=== PATIENT | female | born 1935 | race Caucasian/White ===

== ENCOUNTER 2019-02-03 09:39 | Day surgery (SDC) | payer MEDICARE, BC ==
[2019-01-30 14:53] VITALS: BMI 22.6
[~2019-02-03 09:39] MED LIST: LACTATED RINGERS 1,000 ML IV SCH; LIDOCAINE 1% 20 ML VIAL (10MG/ML) FOR IV START INTRADERMA PRN
[2019-02-03 10:18] VITALS: TEMP 97
[2019-02-03] MEDS ORDERED: LIDOCAINE 1% INJ 10MG/ML (20 ML MDV) ONE (10:51)
[2019-02-03] MEDS ORDERED: PROPOFOL 10 MG/ML 20 ML VIAL IV ONE (10:51)
--- NOTE | 2019-02-03 10:55 | P.GSHP ---
History of Present Illness H&P Date: 02/03/19 Chief Complaint: Colon cancer screening history of colon cancer Patient here today for colonoscopy. Last colonoscopy 3 years ago. Personal history of right-sided colon cancer. Underwent right colectomy in 2014. Some constipation lately. Past Medical History Past Medical History: Cancer Additional Past Medical History / Comment(s): Hx Anemia, Colon CA 2014. Varicose Veins. History of Any Multi-Drug Resistant Organisms: None Reported Past Surgical History: Appendectomy, Bowel Resection, Heart Catheterization, Orthopedic Surgery, Tonsillectomy Additional Past Surgical History / Comment(s): ORIF RT ANKLE, Later Hardware removal, CTR, JO-ANN CATARACT, COLONOSCOPY, RIGHT COLECTOMY 2015 Past Anesthesia/Blood Transfusion Reactions: No Reported Reaction Additional Past Anesthesia/Blood Transfusion Reaction / Comment(s): NO BLOOD Smoking Status: Never smoker - Past Family History Mother Family Medical History: Cancer Additional Family Medical History / Comment(s): BLADDER CA Sister(s) Family Medical History: Cancer Additional Family Medical History / Comment(s): LUNG CA Son(s) Family Medical History: Cancer Additional Family Medical History / Comment(s): COLON Medications and Allergies Home Medications Medication Instructions Recorded Confirmed Type Aspirin [Adult Low Dose Aspirin EC] 81 mg PO DAILY 01/30/19 01/30/19 History Multivitamin [Multivitamins Adult 1 each PO DAILY 01/30/19 01/30/19 History Gummies] Polyethylene Glycol 3350 [Miralax] 17 gm PO DAILY PRN 01/30/19 01/30/19 History Allergies Allergy/AdvReac Type Severity Reaction Status Date / Time amoxicillin trihydrate Allergy Unknown Verified 02/03/19 09:55 [From Augmentin] Penicillins Allergy Unknown Verified 02/03/19 09:55 potassium clavulanate Allergy Unknown Verified 02/03/19 09:55 [From Augmentin] Surgical - Exam Vital Signs Temp Pulse Resp BP Pulse Ox 97.0 F L 82 16 169/78 98 02/03/19 10:15 02/03/19 10:15 02/03/19 10:15 02/03/19 10:15 02/03/19 10:15 Physical exam: General: Well-developed, well-nourished HEENT: Normocephalic, sclerae nonicteric Abdomen: Nontender, nondistended Extremities: No edema Neuro: Alert and oriented Assessment and Plan (1) Colon cancer Narrative/Plan: Will proceed with colonoscopy at this time Current Visit: No Status: Acute Code(s): C18.9 - MALIGNANT NEOPLASM OF COLON, UNSPECIFIED SNOMED Code(s): 221884289
--- NOTE | 2019-02-03 11:12 | P.PCN ---
Date of Procedure: 02/03/19 Procedure(s) Performed: PREOPERATIVE DIAGNOSIS: Colon cancer screening, history of colon cancer POSTOPERATIVE DIAGNOSIS: Diverticulosis PROCEDURE: Colonoscopy ANESTHESIA: MAC SURGEON: Joshua Meeks M.D. SPECIMENS: None ENDOSCOPIC PROCEDURE: The patient was placed on the endoscopy table in the left decubitus position. The Olympus colonoscope was inserted into the anus and passed under direct visualization to the ileocolonic anastomosis in the transverse colon. The anastomosis was widely patent. There were no neoplastic changes. The transverse descending sigmoid and rectum are free of any neoplastic inflammatory or polypoid lesions. The patient had extensive sigmoid diverticulosis with tortuosity. Digital rectal examination was normal. The patient was taken to the recovery room in stable condition per anesthesia guidelines. RECOMMENDATIONS: Increase fiber. Follow-up colonoscopy 5 years.
[2019-02-03 11:34] VITALS: BP 146/88; PULSE 71; RESP 18
== END 2019-02-03 12:12 | disposition home or self-care (01) ==
LOC: ORWHC2ENDO 09:39
PROVIDERS: ATTEND Surgery
DX: Z12.11 Encounter for screening for malignant neoplasm of colon (principal); Z85.038 Personal history of other malignant neoplasm of large intestine; K57.30 Diverticulosis of large intestine without perforation or abscess without bleeding; Z98.42 Cataract extraction status, left eye; Z98.41 Cataract extraction status, right eye; Z79.82 Long term (current) use of aspirin; K59.00 Constipation, unspecified; Z80.52 Family history of malignant neoplasm of bladder; Z80.1 Family history of malignant neoplasm of trachea, bronchus and lung; Z88.1 Allergy status to other antibiotic agents; Z88.0 Allergy status to penicillin; Z90.49 Acquired absence of other specified parts of digestive tract
CPT/HCPCS: G0105; J2001; J2704; 45378

== ENCOUNTER 2024-05-29 20:50 | Inpatient (IN) | payer MEDICARE, BC ==
--- NOTE | 2024-05-29 20:55 | ED ---
General Adult HPI - General Stated complaint: NSTEMI Time Seen by Provider: 05/29/24 20:55 - History of Present Illness Initial comments: Brittney is a pleasant 89-year-old female who was transferred to our facility from [facility]. She presented to the hospital with complaint of 2 days of generalized malaise and experiencing some chest pressure and pain in the left shoulder throughout the day today. Workup at outside hospital revealed a normal EKG with mildly elevated troponin, patient does have a history of CAD and follows with Dr. ANAI Baca requested transfer to our facility for evaluation. Upon arrival to our hospital patient has no complaints aside from being hungry weeks she had not had the opportunity to eat today. - Related Data Home Medications Medication Instructions Recorded Confirmed Aspirin [Adult Low Dose Aspirin EC] 81 mg PO DAILY 01/30/19 01/30/19 Multivitamin [Multivitamins Adult 1 each PO DAILY 01/30/19 01/30/19 Gummies] polyethylene glycoL 3350 [Miralax] 17 gm PO DAILY PRN 01/30/19 01/30/19 Allergies Allergy/AdvReac Type Severity Reaction Status Date / Time amoxicillin trihydrate Allergy Unknown Verified 02/03/19 09:55 [From Augmentin] Penicillins Allergy Unknown Verified 02/03/19 09:55 potassium clavulanate Allergy Unknown Verified 02/03/19 09:55 [From Augmentin] Review of Systems ROS Statement: Those systems with pertinent positive or pertinent negative responses have been documented in the HPI. ROS Other: All systems not noted in ROS Statement are negative. Past Medical History Past Medical History: Cancer Additional Past Medical History / Comment(s): Hx Anemia, Colon CA 2014. Varicose Veins. History of Any Multi-Drug Resistant Organisms: None Reported Past Surgical History: Appendectomy, Bowel Resection, Heart Catheterization, Orthopedic Surgery, Tonsillectomy Additional Past Surgical History / Comment(s): ORIF RT ANKLE, Later Hardware removal, CTR, JO-ANN CATARACT, COLONOSCOPY, RIGHT COLECTOMY 2015 Past Anesthesia/Blood Transfusion Reactions: No Reported Reaction Additional Past Anesthesia/Blood Transfusion Reaction / Comment(s): NO BLOOD Past Psychological History: No Psychological Hx Reported Past Alcohol Use History: Rare Past Drug Use History: None Reported - Past Family History Mother Family Medical History: Cancer Additional Family Medical History / Comment(s): BLADDER CA Sister(s) Family Medical History: Cancer Additional Family Medical History / Comment(s): LUNG CA Son(s) Family Medical History: Cancer Additional Family Medical History / Comment(s): COLON General Exam - General Exam Comments Initial Comments: Physical Exam GENERAL: Patient is well-developed and well-nourished. Patient is nontoxic and well-hydrated and is in no distress. HENT: Normocephalic, Atraumatic. EYES: PERRL, EOMI PULMONARY: Unlabored respirations. CARDIOVASCULAR: RRR Warm and well perfused extremities ABDOMEN: Non-distended SKIN: No rashes or bruising : Deferred NEUROLOGIC: Alert and oriented Normal speech Normal gait MUSCULOSKELETAL: Moving all extremities with no apparent injury PSYCHIATRIC: No SI/HI Course Vital Signs 05/29/24 20:53 Temperature 98.1 F Pulse Rate 69 Respiratory 16 Rate Blood Pressure 98/61 O2 Sat by Pulse 95 Oximetry EKG Findings - EKG Comments: EKG Findings:: EKG was interpreted by me EKG obtained due to elevated troponin EKG obtained at 2117 rate is 68 rhythm is sinus with a right bundle branch block, MD 183 QRS 158 Q[address] elevations or depressions no previous EKGs for comparison. Medical Decision Making - Medical Decision Making Was pt. sent in by a medical professional or institution (, PA, FIELD UNDERWRITER, urgent care, hospital, or prison...) When possible be specific @ -Yes, transferred from [facility] Did you speak to anyone other than the patient for history (EMS, parent, family, police, friend...)? What history was obtained from this source @ -Yes, transferring physician, EMS, patient's daughter at bedside Did you review nursing and triage notes (agree or disagree)? Why? @ -I reviewed and agree with nursing and triage notes Were old charts reviewed (outside hosp., previous admission, EMS record, old EKG, old radiological studies, urgent care reports/EKG's, prison records)? Report findings @ -Old charts were reviewed no EKGs were available Differential Diagnosis (chest pain, altered mental status, abdominal pain women, abdominal pain men, vaginal bleeding, weakness, fever, dyspnea, syncope, he adache, dizziness, GI bleed, back pain, seizure, CVA, palpatations, mental health)? @ -Differential Chest Pain: Stable Angina, Unstable Angina, STEMI, NSTEMI Aortic Dissection, Pneumothorax, Musculoskeletal, Esophageal Spasm GERD, Cholecystitis, Pancreatitis, Zoster, this is not meant to be an all-inclusive list. EKG interpreted by me (3pts min.). @ -As above X-rays interpreted by me (1pt min.). @ -Outside chest x-ray no acute findings CT interpreted by me (1pt min.). @ -None done U/S interpreted by me (1pt. min.). @ -None done What testing was considered but not performed or refused? (CT, X-rays, U/S, labs)? Why? @ -None What meds were considered but not given or refused? Why? @ -None Did you discuss the management of the patient with other professionals (professionals i.e. , PA, FIELD UNDERWRITER, lab, RT, psych nurse, web content & social media manager, environmental lawyer, teacher, information officer, outsole caser)? Give summary @ -Ace with admitting physician Dr. Piper Was smoking cessation discussed for >3mins.? @ -No Was critical care preformed (if so, how long)? @ -No Were there social determinants of health that impacted care today? How? (Homelessness, low income, unemployed, alcoholism, drug addiction, tr ansportation, low edu. Level, literacy, decrease access to med. care, group home, rehab)? @ -No Was there de-escalation of care discussed even if they declined (Discuss DNR or withdrawal of care, Hospice)? DNR status @ -No What co-morbidities impacted this encounter? (DM, HTN, Smoking, COPD, CAD, Cancer, CVA, ARF, Chemo, Hep., AIDS, mental health diagnosis, sleep apnea, morbid obesity)? @ -CAD Was patient admitted / discharged? Hospital course, mention meds given and route, prescriptions, significant lab abnormalities, going to OR and other pertinent info. @ -Admit Patient was seen and examined, history is obtained from transferring physician, patient and her daughter at bedside. Patient reported not feeling well for about 2 days but had been complaining to her daughter of pressure in the chest and pain in the left shoulder. Outside labs revealed an elevated troponin patient was started on heparin upon arrival here her only complaint was hunger. Patient was given food, her repeat EKG shows right bundle no previous for comparison. Patient repeat troponin is remains elevated we will continue heparin and plan for admission with cardiology consultation. Patient was agreeable to this. Undiagnosed new problem with uncertain prognosis? @ -Yes, NSTEMI Drug Therapy requiring intensive monitoring for toxicity (Heparin, Nitro, Insulin, Cardizem)? @ -Yes, heparin Were any procedures done? @ -No Diagnosis/symptom? @ -NSTEMI Acute, or Chronic, or Acute on Chronic? @ -Acute Uncomplicated (without systemic symptoms) or Complicated (systemic symptoms)? @ -Default Side effects of treatment? @ -No Exacerbation, Progression, or Severe Exacerbation? @ -No Poses a threat to life or bodily function? How? (Chest pain, USA, PR, pneumonia, PE, COPD, DKA, ARF, appy, cholecystitis, CVA, Diverticulitis, Homicidal, Suicidal, threat to staff... and all critical care pts) @ -Yes - Lab Data Result diagrams: 05/29/24 21:19 05/29/24 21:19 Lab Results 05/29/24 05/29/24 05/29/24 Range/Units 21:19 21:19 21:19 WBC 8.6 (3.8-10.6) k/uL RBC 3.99 (3.80-5.40) m/uL Hgb 12.4 (11.4-16.0) gm/dL Hct 37.2 (34.0-46.0) % MCV 93.2 (80.0-100.0) fL MCH 30.9 (25.0-35.0) pg MCHC 33.2 (31.0-37.0) g/dL RDW 12.4 (11.5-15.5) % Plt Count 132 L (150-450) k/uL MPV 9.8 Neutrophils % 73 % Lymphocytes % 18 % Monocytes % 4 % Eosinophils % 2 % Basophils % 1 % Neutrophils # 6.3 (1.3-7.7) k/uL Lymphocytes # 1.5 (1.0-4.8) k/uL Monocytes # 0.4 (0-1.0) k/uL Eosinophils # 0.2 (0-0.7) k/uL Basophils # 0.1 (0-0.2) k/uL PT 11.4 (10.0-12.5) sec INR 1.0 (<1.2) APTT 53.9 H (22.0-30.0) sec Sodium 136 L (137-145) mmol/L Potassium 3.3 L (3.5-5.1) mmol/L Chloride 103 (98-107) mmol/L Carbon Dioxide 30 (22-30) mmol/L Anion Gap 3 mmol/L BUN 47 H (7-17) mg/dL Creatinine 0.70 (0.52-1.04) mg/dL Est GFR (CKD-EPI)AfAm 89 (>60 ml/min/1.73 sqM) Est GFR (CKD-EPI)NonAf 78 (>60 ml/min/1.73 sqM) Glucose 112 H (74-99) mg/dL Calcium 8.3 L (8.4-10.2) mg/dL Magnesium 1.9 (1.6-2.3) mg/dL Total Bilirubin 0.4 (0.2-1.3) mg/dL AST 35 (14-36) U/L ALT 19 (4-34) U/L Alkaline Phosphatase 76 (38-126) U/L Troponin I (0.000-0.034) ng/mL Total Protein 5.9 L (6.3-8.2) g/dL Albumin 3.0 L (3.5-5.0) g/dL 05/29/24 Range/Units 21:19 WBC (3.8-10.6) k/uL RBC (3.80-5.40) m/uL Hgb (11.4-16.0) gm/dL Hct (34.0-46.0) % MCV (80.0-100.0) fL MCH (25.0-35.0) pg MCHC (31.0-37.0) g/dL RDW (11.5-15.5) % Plt Count (150-450) k/uL MPV Neutrophils % % Lymphocytes % % Monocytes % % Eosinophils % % Basophils % % Neutrophils # (1.3-7.7) k/uL Lymphocytes # (1.0-4.8) k/uL Monocytes # (0-1.0) k/uL Eosinophils # (0-0.7) k/uL Basophils # (0-0.2) k/uL PT (10.0-12.5) sec INR (<1.2) APTT (22.0-30.0) sec Sodium (137-145) mmol/L Potassium (3.5-5.1) mmol/L Chloride (98-107) mmol/L Carbon Dioxide (22-30) mmol/L Anion Gap mmol/L BUN (7-17) mg/dL Creatinine (0.52-1.04) mg/dL Est GFR (CKD-EPI)AfAm (>60 ml/min/1.73 sqM) Est GFR (CKD-EPI)NonAf (>60 ml/min/1.73 sqM) Glucose (74-99) mg/dL Calcium (8.4-10.2) mg/dL Magnesium (1.6-2.3) mg/dL Total Bilirubin (0.2-1.3) mg/dL AST (14-36) U/L ALT (4-34) U/L Alkaline Phosphatase (38-126) U/L Troponin I 0.036 H* (0.000-0.034) ng/mL Total Protein (6.3-8.2) g/dL Albumin (3.5-5.0) g/dL Disposition Clinical Impression: NSTEMI (non-ST elevated myocardial infarction) Disposition: ADMITTED IP TO THIS HOSP Condition: Stable Is patient prescribed a controlled substance at d/c from ED?: No Referrals: Jefe Ulloa MD [Primary Care Provider] - 1-2 days
[2024-05-29 21:26] LABS: Basophils # (A) 0.1 k/uL (0-0.2); Basophils % (A) 1 %; Eosinophils # (A) 0.2 k/uL (0-0.7); Eosinophils % (A) 2 %; HCT 37.2 % (34.0-46.0); HGB 12.4 gm/dL (11.4-16.0); Lymphocytes # (A) 1.5 k/uL (1.0-4.8); Lymphocytes % (A) 18 %; MCH 30.9 pg (25.0-35.0); MCHC 33.2 g/dL (31.0-37.0); MCV 93.2 fL (80.0-100.0); Mean Platelet Volume 9.8; Monocytes # (A) 0.4 k/uL (0-1.0); Monocytes % (A) 4 %; Neutrophils # (A) 6.3 k/uL (1.3-7.7); Neutrophils % (A) 73 %; Platelet Count 132 k/uL (150-450); RBC 3.99 m/uL (3.80-5.40); RDW 12.4 % (11.5-15.5); WBC 8.6 k/uL (3.8-10.6)
[2024-05-29] MEDS: HEPARIN SOD,PORK IN 0.45% NACL 25,000 UNIT in 0.45% NACL 1 250ML.BAG IV SCH (21:35)
[2024-05-29 21:43] LABS: Partial Thromboplastin Time 53.9 sec (22.0-30.0); Prothrombin Time 11.4 sec (10.0-12.5)
[2024-05-29 21:52] LABS: African American GFR (CKD) 89 (>60 ml/min/1.73 sqM); Non-African American GFR(CKD) 78 (>60 ml/min/1.73 sqM); Total Bilirubin 0.4 mg/dL (0.2-1.3); Total Protein 5.9 g/dL (6.3-8.2)
[2024-05-29 22:12] LABS: ALT 19 U/L (4-34); AST 35 U/L (14-36); Alkaline Phosphatase 76 U/L (38-126); Anion Gap 3 mmol/L; Blood Urea Nitrogen 47 mg/dL (7-17); Calcium 8.3 mg/dL (8.4-10.2); Carbon Dioxide 30 mmol/L (22-30); Chloride 103 mmol/L (98-107); Glucose 112 mg/dL (74-99); Magnesium 1.9 mg/dL (1.6-2.3); Potassium 3.3 mmol/L (3.5-5.1); Sodium 136 mmol/L (137-145)
[2024-05-29] MEDS ORDERED: NITROGLYCERIN SL TABS 0.4 MG TAB SUBLINGUAL PRN (22:36)
[2024-05-29] MEDS: POTASSIUM CHLORIDE ER 20 MEQ TAB.ER PO STA (22:45)
[2024-05-30 03:32] LABS: Basophils % (A) 1 %; Eosinophils # (A) 0.2 k/uL (0-0.7); Eosinophils % (A) 2 %; HCT 38.2 % (34.0-46.0); HGB 12.6 gm/dL (11.4-16.0); Lymphocytes # (A) 1.4 k/uL (1.0-4.8); Lymphocytes % (A) 20 %; MCH 30.9 pg (25.0-35.0); MCHC 33.1 g/dL (31.0-37.0); MCV 93.3 fL (80.0-100.0); Mean Platelet Volume 10.3; Monocytes # (A) 0.3 k/uL (0-1.0); Monocytes % (A) 4 %; Neutrophils # (A) 5.1 k/uL (1.3-7.7); Neutrophils % (A) 72 %; Platelet Count 142 k/uL (150-450); RDW 12.8 % (11.5-15.5); WBC 7.2 k/uL (3.8-10.6)
[2024-05-30 04:10] LABS: Partial Thromboplastin Time 32.7 sec (22.0-30.0); Prothrombin Time 11.1 sec (10.0-12.5)
[2024-05-30] MEDS: HEPARIN SODIUM 1,000 UN/ML (10ML VL) IV PRN (04:46)
[2024-05-30] MEDS ORDERED: ALPRAZolam 0.5 MG TAB PO PRN (07:54)
[2024-05-30] MEDS ORDERED: NITROGLYCERIN SL TABS 0.4 MG TAB SUBLINGUAL PRN (07:54)
[2024-05-30] MEDS ORDERED: ASPIRIN 325 MG TAB PO SCH (09:00)
[2024-05-30 09:14] LABS: Chol/HDL Ratio 4.28 Ratio; LDL Cholesterol,Calculated 117.1 mg/dL (0.0-131.0)
[2024-05-30] MEDS: ASPIRIN 81 MG PO SCH (09:25)
[2024-05-30] MEDS: ASPIRIN 325 MG TAB PO STA (09:25)
[2024-05-30] MEDS: ATORVASTATIN 80 MG TAB PO STA (09:25)
[2024-05-30] MEDS: MIDAZOLAM 2 MG/2 ML VIAL IVP ONE (12:09)
[2024-05-30] MEDS: LIDOCAINE 1% INJ 10MG/ML (20 ML MDV) SQ ONE ×2 (12:11)
[2024-05-30] MEDS: HEPARIN SODIUM,PORCINE 10,000 UNIT in SODIUM CHLORIDE 0.9% 1,000 ML IRRIGATION ONE (12:14)
[2024-05-30] MEDS: HEPARIN SODIUM,PORCINE (1 ML) 2,500 UNIT in SODIUM CHLORIDE 0.9% 250 ML IRRIGATION ONE (12:14)
[2024-05-30] MEDS: SODIUM CHLORIDE 0.9% 1,000 ML IV ONE (12:14)
--- NOTE | 2024-05-30 12:28 | P.CRDCN ---
History of Present Illness Consult date: 05/30/24 Reason for Consult (text): NSTEMI History of present illness: This is an 89-year-old female patient of Dr. ANAI Baca with past medical history of moderate aortic stenosis, hypertension. We have been asked to evaluate the patient for NSTEMI. Patient states that she presented to [facility] with complaints of weakness and a little bit hard to breath. She states she has had some dizziness off and on but no syncopal episodes. Patient does have some concerns of vague type chest discomfort. She denies any previous heart surgery or stent. She normally is ambulatory with a cane. Patient is seen today in the emergency center waiting for a bed on the cardiac stepdown unit. Patient has been started on a heparin drip. Blood pressure 122/65, heart rate 66, pulse ox 96% on room air. Patient has been started on a heparin drip. Discussed with patient option of cardiac catheterization and she is agreeable to move forward with this today. -EKG: Sinus rhythm with right bundle branch block -Chest x-ray: Done at [facility] finding no acute process -Laboratory studies: WBC 7.2, hemoglobin 12.6, platelet count 142. Sodium 136, potassium 3.3 and has been replaced, BUN 47 creatinine 0.7. Troponin 0.036, 0.032, 0.028. Triglycerides 112, cholesterol 182, LDL 117, HDL 42. Previous troponins completed at [facility] were 0.062 and 0.051. -Home cardiac medications: Lasix 20 mg daily, metolazone 2.5 mg twice weekly, Toprol XL 25 mg daily, potassium chloride 10 mEq daily. -Cardiac catheterization in 2013 revealed normal coronary arteries, EF 60%. -Echocardiogram performed 01/24/2024 revealed moderate aortic stenosis with mean gradient of 20 mmHg, moderate aortic regurgitation, mild mitral regurgitation, no significant pulmonary hypertension. Review Of Systems: At the time of my exam: CONSTITUTIONAL: Denies fever or chills. HEENT: Denies blurred vision, vision changes, or eye pain. Denies hemoptysis CARDIOVASCULAR: Denies chest pain. Denies orthopnea. Denies PND. Denies palpitations RESPIRATORY: Denies shortness of breath. GASTROINTESTINAL: Denies abdominal pain. Denies nausea or vomiting. HEMATOLOGIC: Denies bleeding disorders. GENITOURINARY: Denies any blood in urine. SKIN: Denies puritis. Denies rash. Physical examination: Gen: This is a frail-appearing 89-year-old female appears to be in no acute distress VS: reviewed HEENT: Head is atraumatic, normocephalic. Pupils equal, round. Sclerae is anicteric. NECK: Supple. No JVD. LUNGS: Clear to auscultation. No wheezes or rhonchi. No intercostal retractions. HEART: Distant heart sounds. Regular rate and rhythm. Systolic murmur. ABDOMEN: Soft No tenderness. EXTREMITIES: No pedal edema. No calf tenderness. NEUROLOGICAL: Patient is awake, alert and oriented x3. Assessment: NSTEMI Moderate aortic stenosis Hypertension Plan: Resume patient's home cardiac medications Start patient on aspirin 81 mg daily and Lipitor 40 mg at bedtime Continue heparin drip Schedule patient for cardiac catheterization today with Dr. Fairbanks N.p.o. Obtain 2-D echocardiogram and Doppler study to assess cardiac structure and function Further recommendations to follow based upon clinical course Thank you kindly for this consultation. Nurse practitioner note has been reviewed, I agree with documented findings and plan of care. Patient was seen and examined. Past Medical History Past Medical History: Cancer Additional Past Medical History / Comment(s): Hx Anemia, Colon CA 2015. Varicose Veins. History of Any Multi-Drug Resistant Organisms: None Reported Past Surgical History: Appendectomy, Bowel Resection, Heart Catheterization, Orthopedic Surgery, Tonsillectomy Additional Past Surgical History / Comment(s): ORIF RT ANKLE, Later Hardware removal, CTR, JO-ANN CATARACT, COLONOSCOPY, RIGHT COLECTOMY 2015 Past Anesthesia/Blood Transfusion Reactions: No Reported Reaction Additional Past Anesthesia/Blood Transfusion Reaction / Comment(s): NO BLOOD Past Psychological History: No Psychological Hx Reported Past Alcohol Use History: Rare Past Drug Use History: None Reported - Past Family History Mother Family Medical History: Cancer Additional Family Medical History / Comment(s): BLADDER CA Sister(s) Family Medical History: Cancer Additional Family Medical History / Comment(s): LUNG CA Son(s) Family Medical History: Cancer Additional Family Medical History / Comment(s): COLON Medications and Allergies Home Medications Medication Instructions Recorded Confirmed Type Azithromycin [Zithromax Z Pack] See Taper PO DAILY 05/30/24 05/30/24 History Furosemide [Lasix] 20 mg PO DAILY 05/30/24 05/30/24 History Metoprolol Succinate (ER) [Toprol 25 mg PO DAILY 05/30/24 05/30/24 History Xl] Potassium Chloride ER [K-Dur 10] 10 meq PO DAILY 05/30/24 05/30/24 History Tolterodine ER [Detrol LA] 2 mg PO DAILY 05/30/24 05/30/24 History metOLazone 2.5 mg PO DIRECTED 05/30/24 05/30/24 History Allergies Allergy/AdvReac Type Severity Reaction Status Date / Time amoxicillin trihydrate Allergy Unknown Verified 05/30/24 09:36 [From Augmentin] Penicillins Allergy Unknown Verified 05/30/24 09:36 potassium clavulanate Allergy Unknown Verified 05/30/24 09:36 [From Augmentin] Physical Exam Vitals: Vital Signs Temp Pulse Resp BP Pulse Ox 05/30/24 05:58 70 18 93/49 94 L 05/30/24 02:06 68 18 117/66 95 05/29/24 20:53 98.1 F 69 16 98/61 95 Intake and Output 05/29/24 05/30/24 05/30/24 22:59 06:59 14:59 Intake Total 43.206 Balance 43.206 Intake: Intake, IV Titration 43.206 Amount Heparin Sod,Pork in 0.45% 43.206 NaCl 25,000 unit In 0.45 % NaCl 1 250ml.bag @ 12 UNITS/KG/HR 5.987 mls/hr IV .Q24H [facility] Rx#: [id number] Other: Weight 49.895 kg Results 05/30/24 02:54 05/29/24 21:19 Cardiac Enzymes 05/29/24 05/29/24 05/29/24 Range/Units 21:19 21:19 23:17 AST 35 (14-36) U/L Troponin I 0.036 H* 0.032 (0.000-0.034) ng/mL 05/30/24 Range/Units 02:54 AST (14-36) U/L Troponin I 0.028 (0.000-0.034) ng/mL Coagulation 05/29/24 05/30/24 Range/Units 21:19 02:54 PT 11.4 11.1 (10.0-12.5) sec APTT 53.9 H 32.7 H (22.0-30.0) sec CBC 05/29/24 05/30/24 Range/Units 21:19 02:54 WBC 8.6 7.2 (3.8-10.6) k/uL RBC 3.99 4.10 (3.80-5.40) m/uL Hgb 12.4 12.6 (11.4-16.0) gm/dL Hct 37.2 38.2 (34.0-46.0) % Plt Count 132 L 142 L (150-450) k/uL Comprehensive Metabolic Panel 05/29/24 Range/Units 21:19 Sodium 136 L (137-145) mmol/L Potassium 3.3 L (3.5-5.1) mmol/L Chloride 103 (98-107) mmol/L Carbon Dioxide 30 (22-30) mmol/L BUN 47 H (7-17) mg/dL Creatinine 0.70 (0.52-1.04) mg/dL Glucose 112 H (74-99) mg/dL Calcium 8.3 L (8.4-10.2) mg/dL AST 35 (14-36) U/L ALT 19 (4-34) U/L Alkaline Phosphatase 76 (38-126) U/L Total Protein 5.9 L (6.3-8.2) g/dL Albumin 3.0 L (3.5-5.0) g/dL Current Medications Generic Name Dose Route Start Last Admin Trade Name Freq PRN Reason Stop Dose Admin Aspirin 325 mg 05/30/24 09:00 Aspirin 325 Mg Tab PO DAILY [facility] Heparin Sodium (Porcine) 0 unit 05/29/24 21:10 05/30/24 04:46 Heparin Sodium 1,000 Un/Ml (10ml Vl) IV 1,247 unit PER PROTOCOL PRN Administration Low PTT Protocol Heparin Sodium/Sodium Chloride 250 mls @ 5.987 mls/hr 05/29/24 21:15 05/30/24 04:48 25,000 unit/ Sodium Chloride IV 14 units/kg/hr .Q24H [facility] 6.985 mls/hr Titration Protocol 12 UNITS/KG/HR Nitroglycerin 0.4 mg 05/29/24 22:36 Nitroglycerin Sl Tabs 0.4 Mg Tab SUBLINGUAL Q5M PRN Chest Pain Intake and Output 05/29/24 05/30/24 05/30/24 22:59 06:59 14:59 Intake Total 43.206 Balance 43.206 Intake: Intake, IV Titration 43.206 Amount Heparin Sod,Pork in 0.45% 43.206 NaCl 25,000 unit In 0.45 % NaCl 1 250ml.bag @ 12 UNITS/KG/HR 5.987 mls/hr IV .Q24H [facility] Rx#: [id number] Other: Weight 49.895 kg 05/30/24 02:54 05/29/24 21:19
[2024-05-30] MEDS: IOPAMIDOL-370 100ML BTL INJ ONE (12:37)
[2024-05-30] MEDS ORDERED: RX INFO: IV CONTRAST WAS GIVEN 1 EACH MISC MISCELLANE PRN (12:40)
--- NOTE | 2024-05-30 12:42 | P.PCN ---
Date of Procedure: 05/30/24 Operative Findings: CARDIAC CATHETERIZATION PERFORMING PHYSICIAN: Sabino Fairbanks MD, RPVI PROCEDURE PERFORMED: 1. Selective right and left coronary angiogram 2. Left heart catheterization 3. Ultrasound-guided access of the right common femoral artery and selective right common femoral artery angiogram INDICATION: Acute non-ST elevation myocardial infarction COMPLICATION: None APPROACH: Right common femoral artery LEVEL OF SEDATION: Moderate with sedation in length of 26 minutes PROCEDURE DESCRIPTION: After obtaining an informed consent, the patient was brought to cardiac maintenance shop laborer. Local anesthesia was performed using lidocaine subcutaneously. The right common femoral artery was cannulated using Seldinger technique, the guidewire passed easily, following that we advanced a 6 Nepali sheath dilator assembly, the wire and dilator were removed and sheath was flushed. Selective right and left coronary angiogram using a 6-Nepali JR4 and JL catheters. Following that we did left heart catheterization using 6-Nepali pigtail catheter. The procedure was completed there was no complication. SELECTIVE CORONARY ANGIOGRAM: The right coronary artery: Large-caliber vessel and a dominant vessel appears to be angiographically normal Left main: Calcified with no evidence of high-grade stenosis The left circumflex: Large-caliber vessel nondominant vessel appears to be angiographically normal The left anterior descending artery: Also large-caliber vessel appears to be normal with no evidence of high-grade stenosis HEMODYNAMICS: The LVEDP 13 mmHg with only mild gradient across aortic valve CONCLUSION: 1. Normal coronary angiogram 2. Mild gradient across aortic valve 3. [] POSTPROCEDURE MANAGEMENT: []
--- NOTE | 2024-05-30 15:31 | P.HPIM ---
History of Present Illness H&P Date: 05/30/24 Chief Complaint: Chest pressure This is a pleasant 89-year-old patient, follows with Dr. Jefe Ulloa. Medical conditions include urine incontinence, hypertension, aortic stenosis Patient initially presented to [facility] with some shortness of breath. And has had some dizziness. Also been having some discomfort in the shoulders and left side of the chest. She cannot tell if this was related to any exertion or at rest. No prior cardiac history. Relatively active. Was initially on IV heparin. Patient ruled in for non-Q wave WI. Patient does state that she does not sleep well. Oftentimes wakes up at night. Is worried about family members. Patient underwent a cardiac catheterization by Dr. Fairbanks this afternoon. Found to have normal coronaries. Postprocedure a bit tired. Review of systems: GEN.: Tired EYES: None HEENT: None NECK: None RESPIRATORY: As above CARDIOVASCULAR: As above GASTROINTESTINAL: None GENITOURINARY: Urine incontinence MUSCULOSKELETAL: Some joint pains LYMPHATICS: None HEMATOLOGICAL: None PSYCHIATRY: Slight forgetfulness, anxious NEUROLOGICAL: None. Does not sleep well Social history: Never smoked. Alcohol rarely. Lives alone. Physical examination: VITAL SIGNS: 98, 68, 20, 132 x 68, 98% room air GENERAL: BMI 21.5, laying in bed awake. EYES: Pupils equal. Conjunctiva stephany l. HEENT: External appearance of nose and ears normal, oral cavity grossly normal. Some decreased hearing NECK: JVD not raised; masses not palpable. HEART: First and second heart sounds are normal; no edema. LUNGS: Respiratory rate normal; clear to auscultation. ABDOMEN: Soft, nontender, liver spleen not palpable, no masses palpable. PSYCH: Alert and oriented x3; mood and affect anxious l. MUSCULOSKELETAL:No Clubbing/cyanosis;muscles-grossly intact. OA in many joints NEUROLOGICAL: Cranial nerves grossly intact; no facial asymmetry, power and sensation grossly intact. LYMPHATICS: No lymph nodes palpable in the axilla and neck INVESTIGATIONS, reviewed in the clinical context: May 30: White count 7.2 hemoglobin 12.6 platelets 142 sodium 136 potassium 3.3 BUN 47 creatinine 0.7 Troponin I 0.036, 0.032, 0.028 LDL 117 EKG tracing personally reviewed by me-right bundle alexandro block. Some ST segment depression different leads Assessment plan: -Acute non-Q wave WI. Patient has some nonspecific EKG changes. Some limping troponin. Aspirin. IV heparin. Cardiac catheterization showing normal coronaries -Essential hypertension Patient has been on Toprol-XL -Chronic urinary incontinence Detrol LA 2 mg a day -Mild hard of hearing -Primary osteoarthritis Tylenol as needed -Social stressors -Chronic insomnia, patient from social stressors regarding family members Ambien 2.5 mg nightly -Full code Care was discussed with the patient questions answered. Follow-up with cardiology - Past Medical History Past Medical History: Cancer Additional Past Medical History / Comment(s): Hx Anemia, Colon CA 2015. [place] icose Veins. History of Any Multi-Drug Resistant Organisms: None Reported Past Surgical History: Appendectomy, Bowel Resection, Heart Catheterization, Orthopedic Surgery, Tonsillectomy Additional Past Surgical History / Comment(s): ORIF RT ANKLE, Later Hardware removal, CTR, JO-ANN CATARACT, COLONOSCOPY, RIGHT COLECTOMY 2014 Past Anesthesia/Blood Transfusion Reactions: No Reported Reaction Additional Past Anesthesia/Blood Transfusion Reaction / Comment(s): NO BLOOD Past Psychological History: No Psychological Hx Reported Past Alcohol Use History: Rare Past Drug Use History: None Reported - Past Family History Mother Family Medical History: Cancer Additional Family Medical History / Comment(s): BLADDER CA Sister(s) Family Medical History: Cancer Additional Family Medical History / Comment(s): LUNG CA Son(s) Family Medical History: Cancer Additional Family Medical History / Comment(s): COLON Medications and Allergies Home Medications Medication Instructions Recorded Confirmed Type Azithromycin [Zithromax Z Pack] See Taper PO DAILY 05/30/24 05/30/24 History Furosemide [Lasix] 20 mg PO DAILY 05/30/24 05/30/24 History Metoprolol Succinate (ER) [Toprol 25 mg PO DAILY 05/30/24 05/30/24 History Xl] Potassium Chloride ER [K-Dur 10] 10 meq PO DAILY 05/30/24 05/30/24 History Tolterodine ER [Detrol LA] 2 mg PO DAILY 05/30/24 05/30/24 History metOLazone 2.5 mg PO DIRECTED 05/30/24 05/30/24 History Allergies Allergy/AdvReac Type Severity Reaction Status Date / Time amoxicillin trihydrate Allergy Unknown Verified 05/30/24 09:36 [From Augmentin] Penicillins Allergy Unknown Verified 05/30/24 09:36 potassium clavulanate Allergy Unknown Verified 05/30/24 09:36 [From Augmentin] Physical Exam Vitals: Vital Signs Temp Pulse Resp BP Pulse Ox 05/30/24 10:49 66 16 128/71 96 05/30/24 09:28 66 18 122/65 96 05/30/24 09:00 98 F 68 16 120/65 96 05/30/24 05:58 70 18 93/49 94 L 05/30/24 02:06 68 18 117/66 95 05/29/24 20:53 98.1 F 69 16 98/61 95 Intake and Output 05/29/24 05/30/24 05/30/24 22:59 06:59 14:59 Intake Total 43.206 Balance 43.206 Intake: Intake, IV Titration 43.206 Amount Heparin Sod,Pork in 0.45% 43.206 NaCl 25,000 unit In 0.45 % NaCl 1 250ml.bag @ 12 UNITS/KG/HR 5.987 mls/hr IV .Q24H [facility] Rx#: [id number] Other: Weight 49.895 kg Results CBC & Chem 7: 05/30/24 02:54 05/29/24 21:19 Labs: Abnormal Lab Results - Last 24 Hours (Table) 05/29/24 05/29/24 05/29/24 Range/Units 21:19 21:19 21:19 Plt Count 132 L (150-450) k/uL APTT 53.9 H (22.0-30.0) sec Sodium 136 L (137-145) mmol/L Potassium 3.3 L (3.5-5.1) mmol/L BUN 47 H (7-17) mg/dL Glucose 112 H (74-99) mg/dL Calcium 8.3 L (8.4-10.2) mg/dL Troponin I (0.000-0.034) ng/mL Total Protein 5.9 L (6.3-8.2) g/dL Albumin 3.0 L (3.5-5.0) g/dL 05/29/24 05/30/24 05/30/24 Range/Units 21:19 02:54 02:54 Plt Count 142 L (150-450) k/uL APTT 32.7 H (22.0-30.0) sec Sodium (137-145) mmol/L Potassium (3.5-5.1) mmol/L BUN (7-17) mg/dL Glucose (74-99) mg/dL Calcium (8.4-10.2) mg/dL Troponin I 0.036 H* (0.000-0.034) ng/mL Total Protein (6.3-8.2) g/dL Albumin (3.5-5.0) g/dL
--- NOTE | 2024-05-30 16:46 | CA ---
Transthoracic Echo Report Name: Brittney Ferrari Age: 89 Gender: F : 1935 Exam Date: 05/30/2024 14:39 Exam Location: [facility] Ht (in): 60 Wt (lb): 110 Ordering Physician: Moraima Tam Attending/Referring Phys: [id number], Yonatan Utilization Review Rn Marcelina Kay RDCS Procedure CPT: Indications: LVF Cardiac Hx: Technical Quality: Good Contrast 1: Total Dose (mL): Contrast 2: Total Dose (mL): MEASUREMENTS (Male / Female) Normal Values 2D ECHO LV Diastolic Diameter PLAX 4.4 cm 4.2 - 5.9 / 3.9 - 5.3 cm LV Systolic Diameter PLAX 2.9 cm IVS Diastolic Thickness 0.6 cm 0.6 - 1.0 / 0.6 - 0.9 cm LVPW Diastolic Thickness 0.5 cm 0.6 - 1.0 / 0.6 - 0.9 cm LV Relative Wall Thickness 0.3 LVOT Diameter 2.0 cm LV Diastolic Volume MOD BP 71.2 cm??? 67 - 155 / 56 - 104 cm??? LV Systolic Volume MOD BP 24.7 cm??? 22 - 58 / 19 - 49 cm??? LV Ejection Fraction MOD BP 65.3 % >= 55 % LV Cardiac Index MOD BP 2455.1 cm???/min???m??? LV Diastolic Volume MOD 4C 72.0 cm??? LV Systolic Volume MOD 4C 23.9 cm??? LV Ejection Fraction MOD 4C 66.8 % LV Cardiac Index MOD 4C 2541.5 cm???/min???m??? LV Diastolic Length 4C 7.1 cm LV Systolic Length 4C 5.7 cm LV Diastolic Volume MOD 2C 68.0 cm??? LV Systolic Volume MOD 2C 24.8 cm??? LV Ejection Fraction MOD 2C 63.5 % LV Cardiac Index MOD 2C 2282.1 cm???/min???m??? LV Diastolic Length 2C 6.8 cm LV Systolic Length 2C 5.5 cm LA Volume 28.2 cm??? 18 - 58 / 22 - 52 cm??? LA Volume Index 19.3 cm???/m??? 16 - 28 cm???/m??? DOPPLER AV Peak Velocity 271.2 cm/s AV Peak Gradient 29.4 mmHg AV Mean Velocity 199.1 cm/s AV Mean Gradient 17.2 mmHg AV Velocity Time Integral 61.7 cm LVOT Peak Velocity 75.6 cm/s LVOT Peak Gradient 2.3 mmHg LVOT Velocity Time Integral 16.7 cm LVOT Stroke Volume 53.6 cm??? LVOT Stroke Volume Index 37.0 ml/m??? LVOT Cardiac Index 2830.3 cm???/min???m??? AV Area Cont Eq vti 0.9 cm??? AV Area Cont Eq pk 0.9 cm??? MV Peak Velocity 129.6 cm/s MV Peak Gradient 6.7 mmHg MV Mean Velocity 78.2 cm/s MV Mean Gradient 2.7 mmHg MV Velocity Time Integral 27.8 cm MV Area PHT 3.4 cm??? Mitral E Point Velocity 74.5 cm/s Mitral A Point Velocity 104.2 cm/s Mitral E to A Ratio 0.7 MV Deceleration Time 220.7 ms TR Peak Velocity 284.8 cm/s TR Peak Gradient 32.4 mmHg Right Atrial Pressure 5.0 mmHg Pulmonary Artery Systolic Pressu 37.4 mmHg Right Ventricular Systolic Press 37.4 mmHg PV Peak Velocity 87.0 cm/s PV Peak Gradient 3.0 mmHg FINDINGS Left Ventricle Left ventricular ejection fraction is estimated at 60-65 %. Left ventricular cavity size normal. Left ventricular wall thickness normal. No obvious regional wall motion abnormalities. Right Ventricle Mild right ventricular dilatation with normal function. Mild pulmonary hypertension. Right Atrium Mild right atrial dilatation. Left Atrium Normal left atrial size. Mitral Valve Mitral valve thickened. No evidence for mitral valve prolapse. Mild mitral stenosis. Mild to moderate mitral regurgitation Aortic Valve Cannot rule out bicuspid valve. Diffuse thickening of the aortic valve cusps with reduced excursion. Mild to moderate aortic stenosis with a mean gradient of 18mmHg. May be underestimate due to poor doppler alignment due to positioning after cath. Trace aortic regurgitation. Tricuspid Valve Structurally normal tricuspid valve. No tricuspid stenosis. Moderate tricuspid regurgitation. Pulmonic Valve Structurally normal pulmonic valve. No pulmonic stenosis. Trace pulmonic regurgitation. Pericardium No pericardial effusion. Aorta Aortic annulus normal. CONCLUSIONS Normal LV function Mild to moderate aortic stenosis Moderate tricuspid regurgitation Mild pulmonary hypertension Mild to moderate mitral regurgitation Previewed by: Dr. Charles Hathaway MD (Electronically Signed) Final Date: 30 May 2024 16:45
[2024-05-30] MEDS: SODIUM CHLORIDE 0.9% 1,000 ML IV SCH (19:40)
[2024-05-30] MEDS: ATORVASTATIN 40 MG TAB PO SCH (19:58)
[2024-05-30] MEDS: ARTIFICIAL TEARS-HYPROMELLOSE DROPS 15 ML BTL BOTH EYES SCH (20:01)
[2024-05-31] MEDS ORDERED: HEPARIN SODIUM,PORCINE (1 ML) 2,500 UNIT in SODIUM CHLORIDE 0.9% 250 ML IRRIGATION PRN (07:00)
[2024-05-31] MEDS ORDERED: HEPARIN SODIUM,PORCINE 10,000 UNIT in SODIUM CHLORIDE 0.9% 1,000 ML IRRIGATION PRN (07:00)
[2024-05-31] MEDS: OXYBUTYNIN XL 5 MG TAB.ER.24 PO SCH (08:13)
[2024-05-31] MEDS: METOPROLOL SUCCINATE (ER) 25 MG TAB.ER.24H PO SCH (08:13)
--- NOTE | 2024-05-31 12:11 | P.PN ---
Subjective Progress Note Date: 05/31/24 This is an 89-year-old female patient of Dr. ANAI Baca with past medical history of moderate aortic stenosis, hypertension. We have been asked to evaluate the patient for NSTEMI. Patient states that she presented to [facility] with complaints of weakness and a little bit hard to breath. She states she has had some dizziness off and on but no syncopal episodes. Patient does have some concerns of vague type chest discomfort. She denies any previous heart surgery or stent. She normally is ambulatory with a cane. Patient is seen today in the emergency center waiting for a bed on the cardiac stepdown unit. Patient has been started on a heparin drip. Blood pressure 122/65, heart rate 66, pulse ox 96% on room air. Patient has been started on a heparin drip. Discussed with patient option of cardiac catheterization and she is agreeable to move forward with this today. -EKG: Sinus rhythm with right bundle branch block -Chest x-ray: Done at [facility] finding no acute process -Laboratory studies: WBC 7.2, hemoglobin 12.6, platelet count 142. Sodium 136, potassium 3.3 and has been replaced, BUN 47 creatinine 0.7. Troponin 0.036, 0.032, 0.028. Triglycerides 112, cholesterol 182, LDL 117, HDL 42. Previous troponins completed at [facility] were 0.062 and 0.051. -Home cardiac medications: Lasix 20 mg daily, metolazone 2.5 mg twice weekly, Toprol XL 25 mg daily, potassium chloride 10 mEq daily. -Cardiac catheterization in 2013 revealed normal coronary arteries, EF 60%. -Echocardiogram performed 01/24/2024 revealed moderate aortic stenosis with mean gradient of 20 mmHg, moderate aortic regurgitation, mild mitral regurgitation, no significant pulmonary hypertension. Progress note May 31, 2024 Patient is seen and examined at bedside this a.m. Right radial site and right femoral site appears to be intact with no signs of swelling or hematoma. She is hemodynamically stable. Not reporting any chest pain. She does report feeling weak. She has a poor appetite and has a low BMI. She has prior history of colon cancer in 2014 Physical examination: Gen: This is a frail-appearing 89-year-old female appears to be in no acute distress VS: reviewed HEENT: Head is atraumatic, normocephalic. Pupils equal, round. Sclerae is anicteric. NECK: Supple. No JVD. LUNGS: Clear to auscultation. No wheezes or rhonchi. No intercostal retractions. HEART: Distant heart sounds. Regular rate and rhythm. Systolic murmur. ABDOMEN: Soft No tenderness. EXTREMITIES: No pedal edema. No calf tenderness. NEUROLOGICAL: Patient is awake, alert and oriented x3. Assessment: NSTEMI Moderate aortic stenosis Hypertension Generalized weakness Low BMI Poor appetite Failure to thrive Plan: Continue aspirin, Lipitor Fela catheterization did not show any obstructive coronary artery disease. Her echocardiogram showed moderate aortic stenosis which has been stable and can be monitored on an outpatient basis. Regarding her generalized weakness and poor appetite would request more imports from primary team. She does have prior history of colon cancer showed get an outpatient evaluation for any relapses in any cancer etiology for her poor appetite and weight loss. Cardiac mobley patient is clear. Cardiology team will sign off. Please reconsult us in case of any question. Objective - Vital Signs Vital signs: Vital Signs Temp 98.3 F 05/31/24 11:52 Pulse 74 05/31/24 11:52 Resp 16 05/31/24 11:52 BP 104/59 05/31/24 11:52 Pulse Ox 96 05/31/24 11:52 FiO2 Intake & Output 05/30/24 05/31/24 05/31/24 18:59 06:59 18:59 Intake Total 440 300 Balance 440 300 Weight 49.895 kg 43.8 kg Intake: IV 200 Oral 240 300 Other: # Voids 2 - Labs CBC & Chem 7: 05/30/24 02:54 05/29/24 21:19 Labs: Abnormal Lab Results - Last 24 Hours (Table) 05/30/24 Range/Units 11:14 APTT 34.2 H (22.0-30.0) sec
--- NOTE | 2024-05-31 13:08 | P.PN ---
Subjective Progress Note Date: 05/31/24 This is a pleasant 89-year-old patient, follows with Dr. Jefe Ulloa. Medical conditions include urine incontinence, hypertension, aortic stenosis Patient initially presented to [facility] with some shortness of breath. And has had some dizziness. Also been having some discomfort in the shoulders and left side of the chest. She cannot tell if this was related to any exertion or at rest. No prior cardiac history. Relatively active. Was initially on IV heparin. Patient ruled in for non-Q wave [place]. Patient does state that she does not sleep well. Oftentimes wakes up at night. Is worried about family members. Patient underwent a cardiac catheterization by Dr. Fairbanks this afternoon. Found to have normal coronaries. Postprocedure a bit tired. 05/31. Patient seen and examined. Family at the bedside they are concerned that the patient is very lethargic and weak. Want PT and OT evaluation REVIEW OF SYSTEMS: CONSTITUTIONAL: No fever, no malaise,. CARDIOVASCULAR: No chest pain, no palpitations, no syncope. PULMONARY: No shortness of breath, no cough, GASTROINTESTINAL: No diarrhea, no nausea, no vomiting, no abdominal pain. NEUROLOGICAL: No headaches, no weakness, PHYSICAL EXAMINATION: GENERAL: The patient is alert and oriented x3, not in any acute distress. Well developed, well nourished. HEENT: Pupils are round and equally reacting to light. EOMI. No scleral icterus. No conjunctival pallor. Normocephalic, atraumatic. No pharyngeal erythema. No thyromegaly. CARDIOVASCULAR: S1 and S2 present. No murmurs, rubs, or gallops. PULMONARY: Chest is clear to auscultation, no wheezing or crackles. ABDOMEN: Soft, nontender, nondistended, normoactive bowel sounds. No palpable organomegaly. MUSCULOSKELETAL: No joint swelling or deformity. EXTREMITIES: No cyanosis, clubbing, or pedal edema. NEUROLOGICAL: Gross neurological examination did not reveal any focal deficits. SKIN: No rashes. Assessment and plan Acute non-ST elevation myocardial infarction . Patient has some nonspecific EKG changes. Some limping troponin. 2D echo done showed normal LV function, mild to moderate aortic stenosis, moderate tricuspid Cardiac catheterization showing normal coronaries Continue aspirin Lipitor Cardiology following PT and OT consulted -Essential hypertension Patient has been on Toprol-XL -Chronic urinary incontinence Detrol LA 2 mg a day -Mild hard of hearing -Primary osteoarthritis Tylenol as needed -Social stressors -Chronic insomnia, patient from social stressors regarding family members Ambien 2.5 mg nightly Labs and medication were reviewed.. Continue same treatment. Continue with symptomatic treatment. Resume home medication. Monitor labs and vitals. DVT and GI prophylaxis. Further recommendations as per clinical course of the patient Dictation was produced using [employer] dictation software. please excuse any grammatical, word or spelling errors. Objective - Vital Signs Vital signs: Vital Signs Temp 98.1 F 05/31/24 08:00 Pulse 69 05/31/24 08:00 Resp 16 05/31/24 08:00 BP 125/64 05/31/24 08:00 Pulse Ox 97 05/31/24 08:00 FiO2 Intake & Output 05/30/24 05/31/24 05/31/24 18:59 06:59 18:59 Intake Total 440 300 Balance 440 300 Weight 49.895 kg 43.8 kg Intake: IV 200 Oral 240 300 Other: # Voids 2 - Labs CBC & Chem 7: 05/30/24 02:54 05/29/24 21:19 Labs: Abnormal Lab Results - Last 24 Hours (Table) 05/30/24 Range/Units 11:14 APTT 34.2 H (22.0-30.0) sec
[2024-05-31] MEDS ORDERED: ZINC OXIDE PASTE (Z-GUARD) 1 APPLIC TOPICAL PRN (13:36)
[2024-05-31] MEDS: ALPRAZolam 0.25 MG TAB PO PRN (20:15)
[2024-05-31] MEDS: ACETAMINOPHEN TAB 325 MG TAB PO PRN (21:17)
[2024-06-01 08:07] LABS: African American GFR (CKD) >90 (>60 ml/min/1.73 sqM); Anion Gap 2 mmol/L; Blood Urea Nitrogen 23 mg/dL (7-17); Calcium 8.1 mg/dL (8.4-10.2); Carbon Dioxide 28 mmol/L (22-30); Chloride 108 mmol/L (98-107); Glucose 100 mg/dL (74-99); Non-African American GFR(CKD) 80 (>60 ml/min/1.73 sqM); Potassium 4.6 mmol/L (3.5-5.1); Sodium 138 mmol/L (137-145)
[2024-06-01 18:37] LABS: African American GFR (CKD) 73 (>60 ml/min/1.73 sqM); Anion Gap 3 mmol/L; Blood Urea Nitrogen 33 mg/dL (7-17); Calcium 8.2 mg/dL (8.4-10.2); Carbon Dioxide 34 mmol/L (22-30); Chloride 102 mmol/L (98-107); Glucose 114 mg/dL (74-99); Non-African American GFR(CKD) 64 (>60 ml/min/1.73 sqM); Potassium 4.8 mmol/L (3.5-5.1); Sodium 139 mmol/L (137-145)
[2024-06-01] MEDS: MAG HYDROX/AL HYDROX/SIMETH 30 ML CUP PO PRN (23:20)
--- NOTE | 2024-06-02 09:45 | P.PN ---
Subjective Progress Note Date: 06/01/24 This is a pleasant 89-year-old patient, follows with Dr. Jefe Ulloa. Medical conditions include urine incontinence, hypertension, aortic stenosis Patient initially presented to [facility] with some shortness of breath. And has had some dizziness. Also been having some discomfort in the shoulders and left side of the chest. She cannot tell if this was related to any exertion or at rest. No prior cardiac history. Relatively active. Was initially on IV heparin. Patient ruled in for non-Q wave MD. Patient does state that she does not sleep well. Oftentimes wakes up at night. Is worried about family members. Patient underwent a cardiac catheterization by Dr. Fairbanks this afternoon. Found to have normal coronaries. Postprocedure a bit tired. 05/31. Patient seen and examined. Family at the bedside they are concerned that the patient is very lethargic and weak. Want PT and OT evaluation. 06/01. Patient seen and examined. No acute issues overnight. REVIEW OF SYSTEMS: CONSTITUTIONAL: No fever, no malaise,. CARDIOVASCULAR: No chest pain, no palpitations, no syncope. PULMONARY: No shortness of breath, no cough, GASTROINTESTINAL: No diarrhea, no nausea, no vomiting, no abdominal pain. NEUROLOGICAL: No headaches, no weakness, PHYSICAL EXAMINATION: GENERAL: The patient is alert and oriented x3, not in any acute distress. Well developed, well nourished. HEENT: Pupils are round and equally reacting to light. EOMI. No scleral icterus. No conjunctival pallor. Normocephalic, atraumatic. No pharyngeal erythema. No thyromegaly. CARDIOVASCULAR: S1 and S2 present. No murmurs, rubs, or gallops. PULMONARY: Chest is clear to auscultation, no wheezing or crackles. ABDOMEN: Soft, nontender, nondistended, normoactive bowel sounds. No palpable organomegaly. MUSCULOSKELETAL: No joint swelling or deformity. EXTREMITIES: No cyanosis, clubbing, or pedal edema. NEUROLOGICAL: Gross neurological examination did not reveal any focal deficits. SKIN: No rashes. Assessment and plan Acute non-ST elevation myocardial infarction . Patient has some nonspecific EKG changes. Some limping troponin. 2D echo done showed normal LV function, mild to moderate aortic stenosis, moderate tricuspid Cardiac catheterization showing normal coronaries Continue aspirin Lipitor Cardiology following PT and OT consulted -Essential hypertension Patient has been on Toprol-XL -Chronic urinary incontinence Detrol LA 2 mg a day -Mild hard of hearing -Primary osteoarthritis Tylenol as needed -Social stressors -Chronic insomnia, patient from social stressors regarding family members Ambien 2.5 mg nightly Labs and medication were reviewed.. Continue same treatment. Continue with symptomatic treatment. Resume home medication. Monitor labs and vitals. DVT and GI prophylaxis. Further recommendations as per clinical course of the patient Dictation was produced using [employer] dictation software. please excuse any grammatical, word or spelling errors. Objective - Vital Signs Vital signs: Vital Signs Temp 98.0 F 06/02/24 07:36 Pulse 79 06/02/24 07:36 Resp 16 06/02/24 07:36 BP 109/56 06/02/24 07:36 Pulse Ox 97 06/02/24 07:36 FiO2 Intake & Output 06/01/24 06/02/24 06/02/24 18:59 06:59 18:59 Intake Total 358 257 Balance 358 257 Weight 46 kg Intake: IV 20 0.9 NS FLUSH 20 Oral 358 237 Other: # Voids 2 - Labs CBC & Chem 7: 05/30/24 02:54 06/01/24 18:11 Labs: Abnormal Lab Results - Last 24 Hours (Table) 06/01/24 06/01/24 Range/Units 18:11 18:11 D-Dimer 27.71 H (<0.60) mg/L FEU Carbon Dioxide 34 H (22-30) mmol/L BUN 33 H (7-17) mg/dL Glucose 114 H (74-99) mg/dL Calcium 8.2 L (8.4-10.2) mg/dL
[2024-06-02] MEDS: PANTOPRAZOLE 40 MG/10 ML VIAL IVP SCH (10:04)
[2024-06-02 10:15] LABS: Basophils % (A) 0 %; Eosinophils # (A) 0.1 k/uL (0-0.7); Eosinophils % (A) 1 %; HCT 39.9 % (34.0-46.0); HGB 12.6 gm/dL (11.4-16.0); Hypochromasia Slight; Lymphocytes % (A) 6 %; MCH 30.9 pg (25.0-35.0); MCHC 31.6 g/dL (31.0-37.0); MCV 97.9 fL (80.0-100.0); Mean Platelet Volume 9.2; Monocytes # (A) 0.5 k/uL (0-1.0); Monocytes % (A) 3 %; Neutrophils # (A) 14.2 k/uL (1.3-7.7); Neutrophils % (A) 89 %; Platelet Count 170 k/uL (150-450); RBC 4.07 m/uL (3.80-5.40); RDW 12.5 % (11.5-15.5); WBC 15.9 k/uL (3.8-10.6)
[2024-06-02 10:47] LABS: ALT 21 U/L (4-34); AST 34 U/L (14-36); African American GFR (CKD) >90 (>60 ml/min/1.73 sqM); Albumin 2.9 g/dL (3.5-5.0); Alkaline Phosphatase 90 U/L (38-126); Anion Gap 0 mmol/L; Blood Urea Nitrogen 22 mg/dL (7-17); Calcium 8.1 mg/dL (8.4-10.2); Carbon Dioxide 29 mmol/L (22-30); Chloride 108 mmol/L (98-107); Glucose 118 mg/dL (74-99); Non-African American GFR(CKD) 78 (>60 ml/min/1.73 sqM); Potassium 4.8 mmol/L (3.5-5.1); Sodium 137 mmol/L (137-145); Total Bilirubin 0.5 mg/dL (0.2-1.3)
--- NOTE | 2024-06-02 11:35 | CT ---
EXAMINATION TYPE: CT chest angio for PE CT DLP: 665.6 mGycm, Automated exposure control for dose reduction was used. DATE OF EXAM: 06/02/2024 11:19 AM COMPARISON: Chest radiograph 05/29/2024 CLINICAL INDICATION:Female, 89 years old with history of Dyspnea; Dyspnea TECHNIQUE/CONTRAST: CTA scan of the thorax is performed with IV Contrast, patient injected with 100 mL of Isovue 370, pul monary embolism protocol. MIP images are created and reviewed. FINDINGS: Pulmonary Artery: There are filling defects identified within the bilateral main pulmonary arteries e xtending into the segmental and subsegmental pulmonary arteries bilaterally of the mid and lower lung s. The main pulmonary artery measures up to 3.1 cm in diameter. The right main pulmonary measures up to 2.8 cm in diameter. The left main pulmonary artery measures up to 2.5 cm in diameter. Reflux of co ntrast in the IVC. Lungs/Pleura: No pleural effusion or pneumothorax. Patchy consolidation within the right lower lobe. Additional patchy consolidative opacities within the medial aspect of the left lower lobe with additi onal patchy tree-in-bud nodular opacities within the left upper lobe. Biapical pleural-parenchymal sc arring. Airway: Large airways are patent. Heart: The heart is mildly enlarged for size. No pericardial effusion. Moderate coronary arterial miguel angel cifications. There is flattening of the interventricular septum with mild dilatation of the right shane tricle and bilateral atria. Vasculature: Mild atherosclerotic calcifications are present throughout the aorta and its branches. N o thoracic aortic aneurysm. Mediastinum: No gross evidence of adenopathy. Musculoskeletal: Mild degenerative disc disease changes are present throughout the thoracolumbar spin e. No acute osseous abnormality. Soft Tissues: Unremarkable. Lower neck: No significant findings. Upper Abdomen: Please refer to dedicated CT abdomen and pelvis the same day for findings. IMPRESSION: 1. Bilateral pulmonary emboli with findings concerning for right heart strain. 2. Patchy consolidation within the right lower lobe and medial left upper lobe with additional tree-i n-bud nodular opacities within the left upper lobe. Findings concerning for infectious process with d eveloping pulmonary infarct not excluded. Findings relayed via [employer] messaging to ordering physician at 11:32 AM on 06/02/2024. [facility], , 06/02/2024 11:32 AM
--- NOTE | 2024-06-02 11:42 | CT ---
EXAMINATION TYPE: CT abdomen pelvis w con CT DLP: 665.6 mGycm, Automated exposure control for dose reduction was used. DATE OF EXAM: 06/02/2024 11:22 AM COMPARISON: CT abdomen pelvis 01/26/2015 CLINICAL INDICATION:Female, 89 years old with history of Abdominal pain; Abdominal pain TECHNIQUE: Standard CT of the abdomen and pelvis following the administration of 100 cc of Isovue 3 00 IV contrast material. Coronal and sagittal reformats were performed. FINDINGS: LOWER CHEST: Please see dedicated CTA chest for findings ABDOMEN LIVER: Stable subcentimeter hypodensity within the right hepatic dome likely representing a cyst. GALLBLADDER AND BILE DUCTS: Unremarkable appearance of the gallbladder. No extra hepatic biliary duct al dilatation. Similar mild intrahepatic biliary ductal dilatation dating back to 2014. PANCREAS: Unremarkable. SPLEEN: Unremarkable. ADRENAL GLANDS: Unremarkable. KIDNEYS AND URETERS: No evidence of hydronephrosis or renal calculus. The kidneys enhance symmetrical ly. Right renal lower pole exophytic 4.2 cm cyst. Additional subcentimeter cyst within the superior p ole the right kidney. Contrast is demonstrated within both collecting systems on the delayed phase. PELVIS BLADDER: Underdistended, limiting evaluation. REPRODUCTIVE: Dystrophic calcifications within the uterus consistent with fibroid changes. ABDOMEN & PELVIS STOMACH AND BOWEL: Stomach and duodenum are unremarkable. Post surgical changes of the colon with vitor stomosis within the right lower quadrant. No focal bowel wall thickening or surrounding inflammatory changes. Distal colonic diverticulosis without evidence for acute diverticulitis. Moderate amount of stool within the colon. No evidence of bowel obstruction. PERITONEUM: No evidence of pneumoperitoneum or free fluid. VASCULATURE: Moderate atherosclerotic calcifications are present throughout the abdominal aorta and i ts branches. No evidence of aortic aneurysm. There are filling defects identified within the bilatera l femoral veins. MUSCULOSKELETAL: No acute osseous abnormalities. Grade 1 anterolisthesis of L4 on L5 without pars def ects. Mild retrolisthesis of L1 on L2. Multilevel degenerative disc disease most pronounced at L1-L2. LYMPH NODES: No evidence for lymphadenopathy. SOFT TISSUE/ABDOMINAL WALL: Unremarkable IMPRESSION: 1. Deep venous thrombosis involving the bilateral femoral veins. 2. Colonic diverticulosis without evidence for acute diverticulitis. 3. Stable mild intrahepatic biliary duct dilatation dating back to 2014. 4. Calcified fibroid uterus. 5. Moderate colonic stool burden. Findings relayed via [employer] system to ordering provider at 11:32 AM on 06/02/2024. [facility], , 06/02/2024 11:40 AM
[2024-06-02] MEDS: HEPARIN SODIUM 1,000 UN/ML (10ML VL) IV ONE (11:48)
[2024-06-02] MEDS: HEPARIN SOD,PORK IN 0.45% NACL 25,000 UNIT in 0.45% NACL 1 250ML.BAG IV SCH (11:49)
[2024-06-02 11:57] LABS: Basophils % (A) 0 %; Eosinophils # (A) 0.1 k/uL (0-0.7); Eosinophils % (A) 1 %; HCT 40.8 % (34.0-46.0); HGB 13.2 gm/dL (11.4-16.0); Lymphocytes % (A) 7 %; MCH 31.1 pg (25.0-35.0); MCHC 32.4 g/dL (31.0-37.0); Mean Platelet Volume 9.5; Monocytes # (A) 0.5 k/uL (0-1.0); Monocytes % (A) 3 %; Neutrophils # (A) 13.3 k/uL (1.3-7.7); Neutrophils % (A) 89 %; Platelet Count 168 k/uL (150-450); RBC 4.25 m/uL (3.80-5.40); RDW 13.1 % (11.5-15.5)
[2024-06-02 12:19] LABS: INR 0.9 (<1.2); Partial Thromboplastin Time 26.8 sec (22.0-30.0); Prothrombin Time 10.6 sec (10.0-12.5)
--- NOTE | 2024-06-02 13:18 | P.GSCN ---
History of Present Illness Consult date: 06/02/24 Reason for Consult: Bilateral pulmonary embolism Requesting physician: Leonard Campbell History of present illness: This is a pleasant 89-year-old female who was transferred from [facility] on 05/29/2024 with complaints of shortness of breath, generalized weakness and chest pressure. She has a past medical history including anemia, colon cancer with a bowel resection in 2014, moderate aortic stenosis and hype rtension who follows with Dr. ANAI Baca. Patient was transferred to [facility] for NSTEMI and was evaluated by cardiology and underwent cardiac catheterization on 05/30/2024 with findings of a normal coronary angiogram. She continues to complain of generalized weakness with lower extremity weakness, decreased appetite and some shortness of breath with exertion. She had a D-dimer that was positive and therefore CT angiogram was ordered of the chest which showed positive bilateral pulmonary emboli with possible right heart strain. Vascular surgery was consulted for pulmonary embolism. Patient reports no shortness of breath at rest. She is currently on room air with oxygen saturation at 94%. She states that she has been sedentary since last week Sunday which is new for her and she is usually very active in her house as well as in her yard. Denies any previous history of pulmonary embolism or DVT. No recent surgeries or recent travel. Patient has not had a colonoscopy since her diagnosis of colon cancer in 2014. She did have a echocardiogram on 05/31/2024 with findings of mild right ventricular dilation with normal function. Mild pulmonary hypertension. Also had a CT of the abdomen and pelvis that reported bilateral femoral vein DVTs. Awaiting venous duplex. Patient states she has been having some pain in her left foot otherwise no lower extremity pain or swelling. She currently denies any chest pain, shortness of breath, abdominal pain, nausea or vomiting. No lower extremity pain. Review of Systems A 14 point review systems was completed all pertinent positives and negatives as stated in the HPI. Past Medical History Past Medical History: Cancer Additional Past Medical History / Comment(s): Hx Anemia, Colon CA 2015. Varicose Veins. History of Any Multi-Drug Resistant Organisms: None Reported Past Surgical History: Appendectomy, Bowel Resection, Heart Catheterization, Orthopedic Surgery, Tonsillectomy Additional Past Surgical History / Comment(s): ORIF RT ANKLE, Later Hardware removal, CTR, JO-ANN CATARACT, COLONOSCOPY, RIGHT COLECTOMY 2015 Past Anesthesia/Blood Transfusion Reactions: No Reported Reaction Additional Past Anesthesia/Blood Transfusion Reaction / Comm: NO BLOOD Past Psychological History: No Psychological Hx Reported Past Alcohol Use History: Rare Past Drug Use History: None Reported - Past Family History Mother Family Medical History: Cancer Additional Family Medical History / Comment(s): BLADDER CA Sister(s) Family Medical History: Cancer Additional Family Medical History / Comment(s): LUNG CA Son(s) Family Medical History: Cancer Additional Family Medical History / Comment(s): COLON Daughter(s) Family Medical History: Cancer Additional Family Medical History / Comment(s): colon Medications and Allergies Home Medications Medication Instructions Recorded Confirmed Type Azithromycin [Zithromax Z Pack] See Taper PO DAILY 05/30/24 05/30/24 History Furosemide [Lasix] 20 mg PO DAILY 05/30/24 05/30/24 History Metoprolol Succinate (ER) [Toprol 25 mg PO DAILY 05/30/24 05/30/24 History Xl] Potassium Chloride ER [K-Dur 10] 10 meq PO DAILY 05/30/24 05/30/24 History Tolterodine ER [Detrol LA] 2 mg PO DAILY 05/30/24 05/30/24 History metOLazone 2.5 mg PO DIRECTED 05/30/24 05/30/24 History Allergies Allergy/AdvReac Type Severity Reaction Status Date / Time amoxicillin trihydrate Allergy Unknown Verified 05/30/24 09:36 [From Augmentin] Penicillins Allergy Unknown Verified 05/30/24 09:36 potassium clavulanate Allergy Unknown Verified 05/30/24 09:36 [From Augmentin] Surgical - Exam Vital Signs Temp Pulse Resp BP Pulse Ox 98.1 F 69 16 98/61 95 05/29/24 20:53 05/29/24 20:53 05/29/24 20:53 05/29/24 20:53 05/29/24 20:53 General appearance: The patient is alert, oriented, appears in no acute distre ss. HET: Head is normocephalic and atraumatic. Pupils are equal and reactive. Neck: Supple. Heart: Regular. Lungs: Equal expansion, normal respiratory effort. Abdomen: Soft, nontender, nondistended. Extremities: Normal skin color and turgor. Palpable bilateral DP pulses. No lower extremity swelling. Neurological: No focal deficits. Strength and sensation are grossly intact. Results - Labs 06/02/24 11:43 06/02/24 10:01 Abnormal Lab Results - Last 24 Hours (Table) 06/01/24 06/01/24 06/02/24 Range/Units 18:11 18:11 10:01 WBC 15.9 H (3.8-10.6) k/uL Neutrophils # 14.2 H (1.3-7.7) k/uL D-Dimer 27.71 H (<0.60) mg/L FEU Chloride (98-107) mmol/L Carbon Dioxide 34 H (22-30) mmol/L BUN 33 H (7-17) mg/dL Glucose 114 H (74-99) mg/dL Calcium 8.2 L (8.4-10.2) mg/dL Total Protein (6.3-8.2) g/dL Albumin (3.5-5.0) g/dL 06/02/24 06/02/24 Range/Units 10:01 11:43 WBC 15.0 H (3.8-10.6) k/uL Neutrophils # 13.3 H (1.3-7.7) k/uL D-Dimer (<0.60) mg/L FEU Chloride 108 H (98-107) mmol/L Carbon Dioxide (22-30) mmol/L BUN 22 H (7-17) mg/dL Glucose 118 H (74-99) mg/dL Calcium 8.1 L (8.4-10.2) mg/dL Total Protein 6.0 L (6.3-8.2) g/dL Albumin 2.9 L (3.5-5.0) g/dL Diabetes panel 06/01/24 06/02/24 Range/Units 18:11 10:01 Sodium 139 137 (137-145) mmol/L Potassium 4.8 4.8 (3.5-5.1) mmol/L Chloride 102 108 H (98-107) mmol/L Carbon Dioxide 34 H 29 (22-30) mmol/L BUN 33 H 22 H (7-17) mg/dL Creatinine 0.83 0.68 (0.52-1.04) mg/dL Glucose 114 H 118 H (74-99) mg/dL Calcium 8.2 L 8.1 L (8.4-10.2) mg/dL AST 34 (14-36) U/L ALT 21 (4-34) U/L Alkaline Phosphatase 90 (38-126) U/L Total Protein 6.0 L (6.3-8.2) g/dL Albumin 2.9 L (3.5-5.0) g/dL Calcium panel 06/01/24 06/02/24 Range/Units 18:11 10:01 Calcium 8.2 L 8.1 L (8.4-10.2) mg/dL Albumin 2.9 L (3.5-5.0) g/dL Pituitary panel 06/01/24 06/02/24 Range/Units 18:11 10:01 Sodium 139 137 (137-145) mmol/L Potassium 4.8 4.8 (3.5-5.1) mmol/L Chloride 102 108 H (98-107) mmol/L Carbon Dioxide 34 H 29 (22-30) mmol/L BUN 33 H 22 H (7-17) mg/dL Creatinine 0.83 0.68 (0.52-1.04) mg/dL Glucose 114 H 118 H (74-99) mg/dL Calcium 8.2 L 8.1 L (8.4-10.2) mg/dL Adrenal panel 06/01/24 06/02/24 Range/Units 18:11 10:01 Sodium 139 137 (137-145) mmol/L Potassium 4.8 4.8 (3.5-5.1) mmol/L Chloride 102 108 H (98-107) mmol/L Carbon Dioxide 34 H 29 (22-30) mmol/L BUN 33 H 22 H (7-17) mg/dL Creatinine 0.83 0.68 (0.52-1.04) mg/dL Glucose 114 H 118 H (74-99) mg/dL Calcium 8.2 L 8.1 L (8.4-10.2) mg/dL Total Bilirubin 0.5 (0.2-1.3) mg/dL AST 34 (14-36) U/L ALT 21 (4-34) U/L Alkaline Phosphatase 90 (38-126) U/L Total Protein 6.0 L (6.3-8.2) g/dL Albumin 2.9 L (3.5-5.0) g/dL - Imaging Comments: Chest CT angiogram reports bilateral pulmonary emboli with findings concerning for right heart strain. Patchy consolidation within the right lobe and medial left upper lobe with additional tree-in-bud nodular opacities within the left upper lobe. Findings concerning for infectious process with developing pulmonary infarct not excluded. Assessment and Plan Assessment: 1. Bilateral pulmonary emboli, with reported mild right heart strain, likely provoked from sedentary 2. Lower extremity DVTs 3. Generalized weakness 4. History of moderate aortic stenosis 5. History of hypertension 6. History of colon cancer status post bowel resection in 2014 Plan: 1. Continue symptomatic and supportive care 2. Venous duplex ordered, pending 3. Continue with IV heparin drip 4. Overall patient is looking stable, vital signs are stable including blood pressure, heart rate and oxygen saturation. Patient is not requiring any oxygen supplementation. Will hold off on any vascular surgical procedures such as EKOS or thrombectomy at this time. We will continue to follow. Thank you for this consultation. The impression and plan of care has been dictated as directed. I performed a history and examination of this patient, discussed the same with the dictator. I agree with the dictator's note ,documented as a scribe. Any additional findings or plans will be noted.
--- NOTE | 2024-06-02 13:28 | P.PN ---
Subjective Progress Note Date: 06/02/24 This is a pleasant 89-year-old patient, follows with Dr. Jefe Ulloa. Medical conditions include urine incontinence, hypertension, aortic stenosis Patient initially presented to [facility] with some shortness of breath. And has had some dizziness. Also been having some discomfort in the shoulders and left side of the chest. She cannot tell if this was related to any exertion or at rest. No prior cardiac history. Relatively active. Was initially on IV heparin. Patient ruled in for non-Q wave [place]. Patient does state that she does not sleep well. Oftentimes wakes up at night. Is worried about family members. Patient underwent a cardiac catheterization by Dr. Fairbanks this afternoon. Found to have normal coronaries. Postprocedure a bit tired. 05/31. Patient seen and examined. Family at the bedside they are concerned that the patient is very lethargic and weak. Want PT and OT evaluation. 06/01. Patient seen and examined. No acute issues overnight. 06/02. Patient seen and examined. Complaining abdominal pain, most likely pressure, no nausea nausea or vomiting. D-dimer elevated. REVIEW OF SYSTEMS: CONSTITUTIONAL: No fever, no malaise,. CARDIOVASCULAR: No chest pain, no palpitations, no syncope. PULMONARY: No shortness of breath, no cough, GASTROINTESTINAL: As mentioned above NEUROLOGICAL: No headaches, no weakness, PHYSICAL EXAMINATION: GENERAL: The patient is alert and oriented x3, not in any acute distress. Well developed, well nourished. HEENT: Pupils are round and equally reacting to light. EOMI. No scleral icterus. No conjunctival pallor. Normocephalic, atraumatic. No pharyngeal erythema. No thyromegaly. CARDIOVASCULAR: S1 and S2 present. No murmurs, rubs, or gallops. PULMONARY: Chest is clear to auscultation, no wheezing or crackles. ABDOMEN: Soft, nontender, nondistended, normoactive bowel sounds. No palpable organomegaly. MUSCULOSKELETAL: No joint swelling or deformity. EXTREMITIES: No cyanosis, clubbing, or pedal edema. NEUROLOGICAL: Gross neurological examination did not reveal any focal deficits. SKIN: No rashes. Assessment and plan Acute non-ST elevation myocardial infarction . Patient has some nonspecific EKG changes. Some limping troponin. 2D echo done showed normal LV function, mild to moderate aortic stenosis, moderate tricuspid Cardiac catheterization showing normal coronaries Continue aspirin Lipitor Cardiology following D-dimer was elevated, will order CT chest and ultrasound lower extremities PT and OT consulted Abdominal pain; Ordered CMP and CT abdomen with contrast -Essential hypertension Patient has been on Toprol-XL -Chronic urinary incontinence Detrol LA 2 mg a day -Mild hard of hearing -Primary osteoarthritis Tylenol as needed -Social stressors -Chronic insomnia, patient from social stressors regarding family members Ambien 2.5 mg nightly Labs and medication were reviewed.. Continue same treatment. Continue with symptomatic treatment. Resume home medication. Monitor labs and vitals. DVT and GI prophylaxis. Further recommendations as per clinical course of the patient Dictation was produced using [employer] dictation software. please excuse any grammatical, word or spelling errors. Objective - Vital Signs Vital signs: Vital Signs Temp 98.0 F 06/02/24 07:36 Pulse 79 06/02/24 07:36 Resp 16 06/02/24 07:36 BP 109/56 06/02/24 07:36 Pulse Ox 97 06/02/24 07:36 FiO2 Intake & Output 06/01/24 06/02/24 06/02/24 18:59 06:59 18:59 Intake Total 358 257 Balance 358 257 Weight 46 kg Intake: IV 20 0.9 NS FLUSH 20 Oral 358 237 Other: # Voids 2 - Labs CBC & Chem 7: 06/02/24 11:43 06/02/24 10:01 Labs: Abnormal Lab Results - Last 24 Hours (Table) 06/01/24 06/01/24 Range/Units 18:11 18:11 D-Dimer 27.71 H (<0.60) mg/L FEU Carbon Dioxide 34 H (22-30) mmol/L BUN 33 H (7-17) mg/dL Glucose 114 H (74-99) mg/dL Calcium 8.2 L (8.4-10.2) mg/dL
--- NOTE | 2024-06-02 14:15 | US ---
EXAMINATION TYPE: US abdomen complete DATE OF EXAM: 06/02/2024 COMPARISON: CT: Today CLINICAL INDICATION: Female, 89 years old with history of Abdominal pain,; abd pain TECHNIQUE: Grayscale and color Doppler imaging of the abdomen was performed. FINDINGS: EXAM MEASUREMENTS: Liver Length: 12.0 cm Gallbladder Wall: 0.20 cm CBD: 0.62 cm, color Doppler imaging was utilized to isolate the common bile duct for measurement. Spleen: 8.1 cm Right Kidney: 10.5 x 5.6 x 4.8 cm Left Kidney: 9.7 x 5.4 x 3.8 cm Pancreas: wnl Liver: wnl Gallbladder: hypoechoic heterogeneous appearance in fundus of GB Evidence for sonographic Pinzon's sign: No CBD: wnl Spleen: wnl Right Kidney: Benign lower pole cyst measuring 4.4 x 3.8 x 3.4cm. No hydronephrosis. Left Kidney: wnl without hydronephrosis Upper IVC: wnl Abd Aorta: Prominent atherosclerotic plaque and irregularity throughout. Normal caliber. IMPRESSION: 1. Borderline to mildly dilated bile duct up to 6.2 mm, acceptable given patient's age. 2. Heterogeneous appearance to the fundus of the gallbladder which can be seen with adenomyomatosis. No mass was identified on the CT scan performed today. Recommend precautionary three-month follow-up gallbladder ultrasound to reassess. [facility], , 06/02/2024 2:13 PM
--- NOTE | 2024-06-02 14:28 | US ---
EXAMINATION TYPE: US venous doppler duplex LE BI DATE OF EXAM: 06/02/2024 1:26 PM COMPARISON: CT: Today CLINICAL INDICATION: Female, 89 years old with history of swelling, elevated d-dimer; elevated d dime r, Pain TECHNIQUE: The lower extremity deep venous system is examined utilizing real time linear array sonog kris with graded compression, color doppler sonography, and spectral doppler. SIDE PERFORMED: Bilateral FINDINGS: VESSELS IMAGED: Common Femoral Vein Deep Femoral Vein Greater Saphenous Vein * Femoral Vein Popliteal Vein Small Saphenous Vein * Proximal Calf Veins (* superficial vessels) Right Leg: No evidence for DVT. Wall appears thickened in CFV, but is compressible, Color Doppler im aging shows patency of the vessels. Spectral waveforms are within normal limits. Left Leg: Echoes seen in the DFV and popliteal vein with no compression and no flow IMPRESSION: 1. Right: Thick appearing wall CFV may reflect some nonocclusive chronic DVT. No acute DVT identified within the right lower extremity imaged from the groin to the upper calf. 2. Left: Positive for acute DVT deep femoral vein and popliteal vein. [facility], , 06/02/2024 2:26 PM
[2024-06-02] MEDS ORDERED: KETOROLAC 15 MG/ML 1 ML VIAL IVP SCH (18:00)
[2024-06-02] MEDS: KETOROLAC 15 MG/ML 1 ML VIAL IVP PRN (18:03)
[2024-06-02] MEDS: HEPARIN SODIUM 1,000 UN/ML (10ML VL) IV PRN (18:11)
[2024-06-03 06:54] LABS: Basophils % (A) 0 %; Eosinophils # (A) 0.1 k/uL (0-0.7); Eosinophils % (A) 1 %; HCT 35.6 % (34.0-46.0); HGB 11.8 gm/dL (11.4-16.0); Lymphocytes # (A) 1.2 k/uL (1.0-4.8); Lymphocytes % (A) 8 %; MCH 31.4 pg (25.0-35.0); MCHC 33.3 g/dL (31.0-37.0); MCV 94.2 fL (80.0-100.0); Mean Platelet Volume 10.6; Monocytes # (A) 0.4 k/uL (0-1.0); Monocytes % (A) 3 %; Neutrophils # (A) 13.9 k/uL (1.3-7.7); Neutrophils % (A) 88 %; Platelet Count 157 k/uL (150-450); RBC 3.78 m/uL (3.80-5.40); RDW 13.1 % (11.5-15.5); WBC 15.7 k/uL (3.8-10.6)
[2024-06-03 07:09] LABS: ALT 19 U/L (4-34); AST 31 U/L (14-36); African American GFR (CKD) >90 (>60 ml/min/1.73 sqM); Albumin 2.6 g/dL (3.5-5.0); Alkaline Phosphatase 87 U/L (38-126); Anion Gap 1 mmol/L; Blood Urea Nitrogen 20 mg/dL (7-17); Calcium 7.8 mg/dL (8.4-10.2); Carbon Dioxide 27 mmol/L (22-30); Chloride 106 mmol/L (98-107); Glucose 100 mg/dL (74-99); Non-African American GFR(CKD) 82 (>60 ml/min/1.73 sqM); Potassium 4.8 mmol/L (3.5-5.1); Sodium 134 mmol/L (137-145); Total Bilirubin 0.6 mg/dL (0.2-1.3); Total Protein 5.2 g/dL (6.3-8.2)
--- NOTE | 2024-06-03 08:46 | P.PN ---
Subjective Progress Note Date: 06/03/24 Principal diagnosis: Pulmonary embolism, DVT Patient is seen and examined today as a follow-up for bilateral pulmonary embolism. 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 She is sitting up eating breakfast. She denies any shortness of breath or chest pain. Denies any lower extremity pain. She is not requiring any oxygen supplementation. She has been up and ambulating to the bathroom. She remains on a heparin drip. States that she would like to go home today. Objective - Vital Signs Vital signs: Vital Signs Temp 97.8 F 06/03/24 07:50 Pulse 85 06/03/24 07:50 Resp 20 06/03/24 07:50 BP 107/57 06/03/24 08:24 Pulse Ox 94 L 06/03/24 07:50 FiO2 Intake & Output 06/02/24 06/03/24 06/03/24 18:59 06:59 18:59 Intake Total 393.144 Balance 393.144 Weight 49.5 kg Intake: Intake, IV Titration 35.144 Amount Heparin Sod,Pork in 0.45% 35.144 NaCl 25,000 unit In 0.45 % NaCl 1 250ml.bag @ 12 UNITS/KG/HR 5.52 mls/hr IV .[facility] Rx#: [id number] Oral 358 Other: Voiding Method Toilet Toilet # Voids 1 1 # Bowel Movements 1 - Exam General appearance: The patient is alert, oriented, appears in no acute distress. HET: Head is normocephalic and atraumatic. Pupils are equal and reactive. Neck: Supple. Heart: Regular. Lungs: Equal expansion, normal respiratory effort. Abdomen: Soft, nontender, nondistended. Extremities: Normal skin color and turgor. Bilateral palpable DP pulses. No lower extremity edema. Neurological: No focal deficits. Strength and sensation are grossly intact. - Labs CBC & Chem 7: 06/03/24 06:00 06/03/24 06:00 Labs: Abnormal Lab Results - Last 24 Hours (Table) 06/02/24 06/02/24 06/02/24 Range/Units 10:01 10:01 11:43 WBC 15.9 H 15.0 H (3.8-10.6) k/uL RBC (3.80-5.40) m/uL Neutrophils # 14.2 H 13.3 H (1.3-7.7) k/uL APTT (22.0-30.0) sec Sodium (137-145) mmol/L Chloride 108 H (98-107) mmol/L BUN 22 H (7-17) mg/dL Glucose 118 H (74-99) mg/dL Calcium 8.1 L (8.4-10.2) mg/dL Total Protein 6.0 L (6.3-8.2) g/dL Albumin 2.9 L (3.5-5.0) g/dL 06/02/24 06/03/24 06/03/24 Range/Units 17:38 00:28 06:00 WBC 15.7 H (3.8-10.6) k/uL RBC 3.78 L (3.80-5.40) m/uL Neutrophils # 13.9 H (1.3-7.7) k/uL APTT 37.3 H 47.7 H (22.0-30.0) sec Sodium (137-145) mmol/L Chloride (98-107) mmol/L BUN (7-17) mg/dL Glucose (74-99) mg/dL Calcium (8.4-10.2) mg/dL Total Protein (6.3-8.2) g/dL Albumin (3.5-5.0) g/dL 06/03/24 Range/Units 06:00 WBC (3.8-10.6) k/uL RBC (3.80-5.40) m/uL Neutrophils # (1.3-7.7) k/uL APTT (22.0-30.0) sec Sodium 134 L (137-145) mmol/L Chloride (98-107) mmol/L BUN 20 H (7-17) mg/dL Glucose 100 H (74-99) mg/dL Calcium 7.8 L (8.4-10.2) mg/dL Total Protein 5.2 L (6.3-8.2) g/dL Albumin 2.6 L (3.5-5.0) g/dL Assessment and Plan Assessment: 1. Bilateral pulmonary emboli, with reported mild right heart strain, likely provoked from being sedentary 2. Lower extremity DVTs 3. Generalized weakness 4. History of moderate aortic stenosis 5. History of hypertension 6. History of colon cancer status post bowel resection in 2014 Plan: 1. Continue symptomatic and supportive care 2. Venous duplex ordered and reviewed 3. Discontinue IV heparin drip and start Eliquis 10 mg twice daily 4. Overall patient is looking stable, vital signs are stable including blood pressure, heart rate and oxygen saturation. Patient is not requiring any oxygen supplementation. Will hold off on any vascular surgical procedures such as EKOS or thrombectomy at this time. Recommend outpatient colonoscopy. Follow-up with Dr. Baca for repeat echocardiogram Thank you for this consultation. Patient is cleared from vascular surgery for discharge. The impression and plan of care has been dictated as directed. I performed a history and examination of this patient, discussed the same with the dictator. I agree with the dictator's note ,documented as a scribe. Any additional findings or plans will be noted.
[2024-06-03] MEDS: Apixaban Initiation Dose--VTE 5 MG TAB PO SCH (10:26)
[2024-06-03 10:32] VITALS: BMI 21.3
--- NOTE | 2024-06-03 13:24 | P.CNPUL ---
History of Present Illness Consult date: 06/03/24 Requesting physician: Ramon Piper Reason for consult: pulmonary embolism Chief complaint: Weakness History of present illness: This is an 89-year-old female with history of moderate aortic stenosis, hypertension, patient was admitted on 05/29/2024, her chief complaint was mostly weakness, and extreme fatigue. Patient has some vague chest discomfort, patient was also noted to have non-ST elevation myocardial infarction on admission, seen by cardiology on consultation, underwent selective right and left coronary angiogram, patient was found to have normal coronary angiogram. And mild gr adient across the aortic valve. On 06/02/2024, patient underwent CT angiogram of the chest,And she was found to have bilateral pulmonary emboli, patchy consolidation within the right lower lobe and medial left upper lobe with tree-in-bud nodular opacities involving the left upper lobe. Raised the possibility of infectious process. Patient had no symptoms to suggest pneumonia on her initial presentation no cough no fever no chills no hemoptysis no chest pain, she had mostly symptoms of weakness as her initial chief complaint. Venous Doppler of the legs showed evidence ofLeft lower extremity DVT. Patient was seen by cardiology on consultation she was also seen by vascular surgery on consultation, the recommendation was to continue present medical treatment, patient was on heparin and she was transitioned to Eliquis. No plans to undergo EKOS thrombolysis or mechanical thrombectomy since the patient did not have significant right-sided heart strain. Patient had no previous history of thromboembolic disease but she did have however history of colon cancer diagnosed and treated in 2014. She had bowel resection, and she had multiple orthopedic surgeries, years ago. Patient has a relatively sedentary lifestyle. No family history of thromboembolic disease Review of Systems CONSTITUTIONAL: Denies fever or chills. HEENT: Denies blurred vision, vision changes, or eye pain. Denies hemoptysis CARDIOVASCULAR: Denies chest pain. Denies orthopnea. Denies PND. Denies palpitations RESPIRATORY: As noted in HPI GASTROINTESTINAL: Patient has chronic vague abdominal pain HEMATOLOGIC: Denies bleeding disorders. GENITOURINARY: Denies any blood in urine. SKIN: Denies puritis. Denies rash. Past Medical History Past Medical History: Cancer Additional Past Medical History / Comment(s): Hx Anemia, Colon CA 2015. Varicose Veins. History of Any Multi-Drug Resistant Organisms: None Reported Past Surgical History: Appendectomy, Bowel Resection, Heart Catheterization, Orthopedic Surgery, Tonsillectomy Additional Past Surgical History / Comment(s): ORIF RT ANKLE, Later Hardware removal, CTR, JO-ANN CATARACT, COLONOSCOPY, RIGHT COLECTOMY 2015 Past Anesthesia/Blood Transfusion Reactions: No Reported Reaction Additional Past Anesthesia/Blood Transfusion Reaction / Comment(s): NO BLOOD Past Psychological History: No Psychological Hx Reported Past Alcohol Use History: Rare Past Drug Use History: None Reported - Past Family History Mother Family Medical History: Cancer Additional Family Medical History / Comment(s): BLADDER CA Sister(s) Family Medical History: Cancer Additional Family Medical History / Comment(s): LUNG CA Son(s) Family Medical History: Cancer Additional Family Medical History / Comment(s): COLON Daughter(s) Family Medical History: Cancer Additional Family Medical History / Comment(s): colon Medications and Allergies Home Medications Medication Instructions Recorded Confirmed Type Azithromycin [Zithromax Z Pack] See Taper PO DAILY 05/30/24 05/30/24 History Furosemide [Lasix] 20 mg PO DAILY 05/30/24 05/30/24 History Metoprolol Succinate (ER) [Toprol 25 mg PO DAILY 05/30/24 05/30/24 History Xl] Potassium Chloride ER [K-Dur 10] 10 meq PO DAILY 05/30/24 05/30/24 History Tolterodine ER [Detrol LA] 2 mg PO DAILY 05/30/24 05/30/24 History metOLazone 2.5 mg PO DIRECTED 05/30/24 05/30/24 History Apixaban [Eliquis Starter Pack 5 - 10 mg PO DIRECTED 30 Days 06/03/24 Rx (for VTE)] #1 each Allergies Allergy/AdvReac Type Severity Reaction Status Date / Time amoxicillin trihydrate Allergy Unknown Verified 05/30/24 09:36 [From Augmentin] Penicillins Allergy Unknown Verified 05/30/24 09:36 potassium clavulanate Allergy Unknown Verified 05/30/24 09:36 [From Augmentin] Physical Exam Vitals: Vital Signs Temp Pulse Resp BP Pulse Ox 06/03/24 11:49 75 16 127/58 97 06/03/24 09:27 94 L 06/03/24 08:24 107/57 06/03/24 07:50 97.8 F 85 20 94/50 94 L 06/03/24 03:15 77 20 120/64 93 L 06/02/24 23:25 74 20 113/67 92 L 06/02/24 20:45 97.5 F L 71 20 108/61 93 L 06/02/24 15:17 99.6 F 78 20 123/68 94 L 06/02/24 13:28 70 Intake and Output 06/02/24 06/03/24 06/03/24 22:59 06:59 14:59 Intake Total 153.144 240 Balance 153.144 240 Intake: Intake, IV Titration 35.144 Amount Heparin Sod,Pork in 0.45% 35.144 NaCl 25,000 unit In 0.45 % NaCl 1 250ml.bag @ 12 UNITS/KG/HR 5.52 mls/hr IV .Q24H [facility] Rx#: [id number] Oral 118 240 Other: Voiding Method Toilet Toilet Toilet # Voids 1 1 # Bowel Movements 1 Weight 49.5 kg 49.5 kg Gen: revealed 89-year-old female pleasant, in no distress, Head: Atraumatic, normocephalic HEENT: PERRLA, EOMI, nonicteric, moist mucous membranes. NECK: Supple. No JVD. No stridor no neck masses LUNGS: Clear to auscultation. No wheezes or rhonchi. HEART: Distant heart sounds. Regular rate and rhythm. Systolic murmur. At the right parasternal area. ABDOMEN: Soft slightly tender no rebound no guarding, positive bowel sounds. EXTREMITIES: No clubbing edema or cyanosis NEUROLOGICAL: Alert oriented x 3 no gross focal deficit Psychiatric: Normal mood affect and normal mental status examination. Results - Laboratory Findings CBC and BMP: 06/03/24 06:00 06/03/24 06:00 PT/INR, D-dimer PT 11.0 sec (10.0-12.5) 06/03/24 06:00 INR 1.0 (<1.2) 06/03/24 06:00 D-Dimer 27.71 mg/L FEU (<0.60) H 06/01/24 18:11 Abnormal lab findings: Abnormal Labs 05/29/24 05/29/24 05/29/24 21:19 21:19 21:19 WBC RBC Plt Count 132 L Neutrophils # APTT 53.9 H D-Dimer Sodium 136 L Potassium 3.3 L Chloride Carbon Dioxide BUN 47 H Glucose 112 H Calcium 8.3 L Troponin I Total Protein 5.9 L Albumin 3.0 L 05/29/24 05/30/24 05/30/24 21:19 02:54 02:54 WBC RBC Plt Count 142 L Neutrophils # APTT 32.7 H D-Dimer Sodium Potassium Chloride Carbon Dioxide BUN Glucose Calcium Troponin I 0.036 H* Total Protein Albumin 05/30/24 06/01/24 06/01/24 11:14 07:19 18:11 WBC RBC Plt Count Neutrophils # APTT 34.2 H D-Dimer 27.71 H Sodium Potassium Chloride 108 H Carbon Dioxide BUN 23 H Glucose 100 H Calcium 8.1 L Troponin I Total Protein Albumin 06/01/24 06/02/24 06/02/24 18:11 10:01 10:01 WBC 15.9 H RBC Plt Count Neutrophils # 14.2 H APTT D-Dimer Sodium Potassium Chloride 108 H Carbon Dioxide 34 H BUN 33 H 22 H Glucose 114 H 118 H Calcium 8.2 L 8.1 L Troponin I Total Protein 6.0 L Albumin 2.9 L 06/02/24 06/02/24 06/03/24 11:43 17:38 00:28 WBC 15.0 H RBC Plt Count Neutrophils # 13.3 H APTT 37.3 H 47.7 H D-Dimer Sodium Potassium Chloride Carbon Dioxide BUN Glucose Calcium Troponin I Total Protein Albumin 06/03/24 06/03/24 06:00 06:00 WBC 15.7 H RBC 3.78 L Plt Count Neutrophils # 13.9 H APTT D-Dimer Sodium 134 L Potassium Chloride Carbon Dioxide BUN 20 H Glucose 100 H Calcium 7.8 L Troponin I Total Protein 5.2 L Albumin 2.6 L - Diagnostic Findings CT scan - chest: image reviewed (As noted in HPI) Assessment and Plan Assessment: Impression: Acute DVT and acute pulmonary embolism Non-ST elevation myocardial infarction Moderate severe aortic stenosis Benign essential hypertension History of colon cancer, bowel resection in 2015 Clinically, doubt pneumonia, CT scan findings are nonspecific Recommendation: Continue present supportive care measures Continue Eliquis Consider further GI workup and possibly colonoscopy, rule out recurrent colon cancer Will continue to follow. Time with Patient: Greater than 30
--- NOTE | 2024-06-03 14:07 | P.PN ---
Subjective Progress Note Date: 06/03/24 This is a pleasant 89-year-old patient, follows with Dr. Jefe Ulloa. Medical conditions include urine incontinence, hypertension, aortic stenosis Patient initially presented to [facility] with some shortness of breath. And has had some dizziness. Also been having some discomfort in the shoulders and left side of the chest. She cannot tell if this was related to any exertion or at rest. No prior cardiac history. Relatively active. Was initially on IV heparin. Patient ruled in for non-Q wave IA. Patient does state that she does not sleep well. Oftentimes wakes up at night. Is worried about family members. Patient underwent a cardiac catheterization by Dr. Fairbanks this afternoon. Found to have normal coronaries. Postprocedure a bit tired. 05/31. Patient seen and examined. Family at the bedside they are concerned that the patient is very lethargic and weak. Want PT and OT evaluation. 06/01. Patient seen and examined. No acute issues overnight. 06/02. Patient seen and examined. Complaining abdominal pain, most likely pressure, no nausea nausea or vomiting. D-dimer elevated. 06/03. Patient seen and examined. CT chest PE protocol done showed bilateral pulmonary emboli with right heart strain, patchy right lower lobe consolidations. Duplex ultrasound of lower extremities done showed acute DVT of left femoral vein and popliteal vein REVIEW OF SYSTEMS: CONSTITUTIONAL: No fever, no malaise,. CARDIOVASCULAR: No chest pain, no palpitations, no syncope. PULMONARY: No shortness of breath, no cough, GASTROINTESTINAL: As mentioned above NEUROLOGICAL: No headaches, no weakness, PHYSICAL EXAMINATION: GENERAL: The patient is alert and oriented x3, not in any acute distress. Well developed, well nourished. HEENT: Pupils are round and equally reacting to light. EOMI. No scleral icterus. No conjunctival pallor. Normocephalic, atraumatic. No pharyngeal erythema. No thyromegaly. CARDIOVASCULAR: S1 and S2 present. No murmurs, rubs, or gallops. PULMONARY: Chest is clear to auscultation, no wheezing or crackles. ABDOMEN: Soft, nontender, nondistended, normoactive bowel sounds. No palpable organomegaly. MUSCULOSKELETAL: No joint swelling or deformity. EXTREMITIES: No cyanosis, clubbing, or pedal edema. NEUROLOGICAL: Gross neurological examination did not reveal any focal deficits. SKIN: No rashes. Assessment and plan Acute non-ST elevation myocardial infarction Bilateral PE Acute DVT of left lower extremity involving the femoral and popliteal . Patient has some nonspecific EKG changes. Some limping troponin. 2D echo done showed normal LV function, mild to moderate aortic stenosis, modera te tricuspid Cardiac catheterization showing normal coronaries Continue aspirin Lipitor CT chest PE protocol done showed bilateral pulmonary emboli with right heart strain, patchy right lower lobe consolidations. Duplex ultrasound of lower extremities done showed acute DVT of left femoral vein and popliteal vein Vascular surgery evaluated, recommended no acute surgical intervention, recommended anticoagulation Abdominal pain; Improved. Ultrasound abdomen done showed heterogenous appearance to the fundus of the gallbladder could be seen in adenomyomatosis, recommend follow-up ultrasound in 3 -Essential hypertension Patient has been on Toprol-XL -Chronic urinary incontinence Detrol LA 2 mg a day -Mild hard of hearing -Primary osteoarthritis Tylenol as needed -Social stressors -Chronic insomnia, patient from social stressors regarding family members Ambien 2.5 mg nightly Labs and medication were reviewed.. Continue same treatment. Continue with symptomatic treatment. Resume home medication. Monitor labs and vitals. DVT and GI prophylaxis. Further recommendations as per clinical course of the patient Dictation was produced using [employer] dictation software. please excuse any grammatical, word or spelling errors. Objective - Vital Signs Vital signs: Vital Signs Temp 97.8 F 06/03/24 07:50 Pulse 85 06/03/24 07:50 Resp 20 06/03/24 07:50 BP 107/57 06/03/24 08:24 Pulse Ox 94 L 06/03/24 09:27 FiO2 Intake & Output 06/02/24 06/03/24 06/03/24 18:59 06:59 18:59 Intake Total 393.144 240 Balance 393.144 240 Weight 49.5 kg Intake: Intake, IV Titration 35.144 Amount Heparin Sod,Pork in 0.45% 35.144 NaCl 25,000 unit In 0.45 % NaCl 1 250ml.bag @ 12 UNITS/KG/HR 5.52 mls/hr IV .Q24H [facility] Rx#: [id number] Oral 358 240 Other: Voiding Method Toilet Toilet # Voids 1 1 # Bowel Movements 1 - Labs CBC & Chem 7: 06/03/24 06:00 06/03/24 06:00 Labs: Abnormal Lab Results - Last 24 Hours (Table) 06/02/24 06/02/24 06/02/24 Range/Units 10:01 10:01 11:43 WBC 15.9 H 15.0 H (3.8-10.6) k/uL RBC (3.80-5.40) m/uL Neutrophils # 14.2 H 13.3 H (1.3-7.7) k/uL APTT (22.0-30.0) sec Sodium (137-145) mmol/L Chloride 108 H (98-107) mmol/L BUN 22 H (7-17) mg/dL Glucose 118 H (74-99) mg/dL Calcium 8.1 L (8.4-10.2) mg/dL Total Protein 6.0 L (6.3-8.2) g/dL Albumin 2.9 L (3.5-5.0) g/dL 06/02/24 06/03/24 06/03/24 Range/Units 17:38 00:28 06:00 WBC 15.7 H (3.8-10.6) k/uL RBC 3.78 L (3.80-5.40) m/uL Neutrophils # 13.9 H (1.3-7.7) k/uL APTT 37.3 H 47.7 H (22.0-30.0) sec Sodium (137-145) mmol/L Chloride (98-107) mmol/L BUN (7-17) mg/dL Glucose (74-99) mg/dL Calcium (8.4-10.2) mg/dL Total Protein (6.3-8.2) g/dL Albumin (3.5-5.0) g/dL 06/03/24 Range/Units 06:00 WBC (3.8-10.6) k/uL RBC (3.80-5.40) m/uL Neutrophils # (1.3-7.7) k/uL APTT (22.0-30.0) sec Sodium 134 L (137-145) mmol/L Chloride (98-107) mmol/L BUN 20 H (7-17) mg/dL Glucose 100 H (74-99) mg/dL Calcium 7.8 L (8.4-10.2) mg/dL Total Protein 5.2 L (6.3-8.2) g/dL Albumin 2.6 L (3.5-5.0) g/dL
--- NOTE | 2024-06-04 11:04 | P.PN ---
Subjective Progress Note Date: 06/04/24 Principal diagnosis: Acute pulmonary embolism and acute DVT This is an 89-year-old female with history of moderate aortic stenosis, hypertension, patient was admitted on 05/29/2024, her chief complaint was mostly weakness, and extreme fatigue. Patient has some vague chest discomfort, patient was also noted to have non-ST elevation myocardial infarction on admission, seen by cardiology on consultation, underwent selective right and left coronary angiogram, patient was found to have normal coronary angiogram. And mild gradient across the aortic valve. On 06/02/2024, patient underwent CT angiogram of the chest,And she was found to have bilateral pulmonary emboli, patchy consolidation within the right lower lobe and medial left upper lobe with tree-in-bud nodular opacities involving the left upper lobe. Raised the possibility of infectious process. Patient had no symptoms to suggest pneumonia on her initial presentation no cough no fever no chills no hemoptysis no chest pain, she had mostly symptoms of weakness as her initial chief complaint. Venous Doppler of the legs showed evidence ofLeft lower extremity DVT. Patient was seen by cardiology on consultation she was also seen by vascular surgery on consultation, the recommendation was to continue present medical treatment, patient was on heparin and she was transitioned to Eliquis. No plans to undergo EKOS thrombolysis or mechanical thrombectomy since the patient did not have significant right-sided heart strain. Patient had no previous history of thromboembolic disease but she did have however history of colon cancer diagnosed and treated in 2014. She had bowel resection, and she had multiple orthopedic surgeries, years ago. Patient has a relatively sedentary lifestyle. No family history of thromboembolic disease Patient was seen today on 06/04/2024, patient is doing well, she is now off heparin, transition to Eliquis. No shortness of breath, no cough, no wheezing, he has some vague right-sided chest discomfort. WBC count is 15.7 hemoglobin 11.8 electrolytes are normal renal profile is normal Objective - Vital Signs Vital signs: Vital Signs Temp 98.3 F 06/04/24 09:08 Pulse 84 06/04/24 09:08 Resp 14 06/04/24 09:08 BP 100/53 06/04/24 09:08 Pulse Ox 98 06/04/24 09:08 FiO2 Intake & Output 06/03/24 06/04/24 06/04/24 18:59 06:59 18:59 Intake Total 480 180 Balance 480 180 Weight 49.5 kg 45.3 kg Intake: Oral 480 180 Other: Voiding Method Toilet Toilet # Voids 1 1 # Bowel Movements 1 1 - Exam Gen: revealed 89-year-old female pleasant, in no distress, Head: Atraumatic, normocephalic HEENT: PERRLA, EOMI, nonicteric, moist mucous membranes. NECK: Supple. No JVD. No stridor no neck masses LUNGS: Clear to auscultation. No wheezes or rhonchi. HEART: Distant heart sounds. Regular rate and rhythm. Systolic murmur. At the right parasternal area. ABDOMEN: Soft slightly tender no rebound no guarding, positive bowel sounds. EXTREMITIES: No clubbing edema or cyanosis NEUROLOGICAL: Alert oriented x 3 no gross focal deficit Psychiatric: Normal mood affect and normal mental status examination. - Labs CBC & Chem 7: 06/03/24 06:00 06/03/24 06:00 Assessment and Plan Assessment: Impression: Acute DVT and acute pulmonary embolism Non-ST elevation myocardial infarction Moderate severe aortic stenosis Benign essential hypertension History of colon cancer, bowel resection in 2014 Clinically, doubt pneumonia, CT scan findings are nonspecific Recommendation: Continue present supportive care measures Continue Eliquis Consider further GI workup and possibly colonoscopy, rule out recurrent colon cancer Will continue to follow. Time with Patient: Less than 30
--- NOTE | 2024-06-04 16:27 | P.PN ---
Subjective Progress Note Date: 06/04/24 This is a pleasant 89-year-old patient, follows with Dr. Jefe Ulloa. Medical conditions include urine incontinence, hypertension, aortic stenosis Patient initially presented to [facility] with some shortness of breath. And has had some dizziness. Also been having some discomfort in the shoulders and left side of the chest. She cannot tell if this was related to any exertion or at rest. No prior cardiac history. Relatively active. Was initially on IV heparin. Patient ruled in for non-Q wave IA. Patient does state that she does not sleep well. Oftentimes wakes up at night. Is worried about family members. Patient underwent a cardiac catheterization by Dr. Fairbanks this afternoon. Found to have normal coronaries. Postprocedure a bit tired. 05/31. Patient seen and examined. Family at the bedside they are concerned that the patient is very lethargic and weak. Want PT and OT evaluation. 06/01. Patient seen and examined. No acute issues overnight. 06/02. Patient seen and examined. Complaining abdominal pain, most likely pressure, no nausea nausea or vomiting. D-dimer elevated. 06/03. Patient seen and examined. CT chest PE protocol done showed bilateral pulmonary emboli with right heart strain, patchy right lower lobe consolidations. Duplex ultrasound of lower extremities done showed acute DVT of left femoral vein and popliteal vein 05/30. Patient seen and examined. No acute issues overnight REVIEW OF SYSTEMS: CONSTITUTIONAL: No fever, no malaise,. CARDIOVASCULAR: No chest pain, no palpitations, no syncope. PULMONARY: No shortness of breath, no cough, GASTROINTESTINAL: As mentioned above NEUROLOGICAL: No headaches, no weakness, PHYSICAL EXAMINATION: GENERAL: The patient is alert and oriented x3, not in any acute distress. Well developed, well nourished. HEENT: Pupils are round and equally reacting to light. EOMI. No scleral icterus. No conjunctival pallor. Normocephalic, atraumatic. No pharyngeal erythema. No th yromegaly. CARDIOVASCULAR: S1 and S2 present. No murmurs, rubs, or gallops. PULMONARY: Chest is clear to auscultation, no wheezing or crackles. ABDOMEN: Soft, nontender, nondistended, normoactive bowel sounds. No palpable organomegaly. MUSCULOSKELETAL: No joint swelling or deformity. EXTREMITIES: No cyanosis, clubbing, or pedal edema. NEUROLOGICAL: Gross neurological examination did not reveal any focal deficits. SKIN: No rashes. Assessment and plan Acute non-ST elevation myocardial infarction Bilateral PE Acute DVT of left lower extremity involving the femoral and popliteal . Patient has some nonspecific EKG changes. Some limping troponin. 2D echo done showed normal LV function, mild to moderate aortic stenosis, moderate tricuspid Cardiac catheterization showing normal coronaries Continue aspirin Lipitor CT chest PE protocol done showed bilateral pulmonary emboli with right heart strain, patchy right lower lobe consolidations. Duplex ultrasound of lower extremities done showed acute DVT of left femoral vein and popliteal vein Vascular surgery evaluated, recommended no acute surgical intervention, recommended anticoagulation Continue Eliquis Pulmonology following Abdominal pain; Improved. Ultrasound abdomen done showed heterogenous appearance to the fundus of the gallbladder could be seen in adenomyomatosis, recommend follow-up ultrasound in 3 -Essential hypertension Patient has been on Toprol-XL -Chronic urinary incontinence Detrol LA 2 mg a day -Mild hard of hearing -Primary osteoarthritis Tylenol as needed -Social stressors -Chronic insomnia, patient from social stressors regarding family members Ambien 2.5 mg nightly Labs and medication were reviewed.. Continue same treatment. Continue with symptomatic treatment. Resume home medication. Monitor labs and vitals. DVT and GI prophylaxis. Further recommendations as per clinical course of the patient Dictation was produced using [employer] dictation software. please excuse any grammatical, word or spelling errors. Objective - Vital Signs Vital signs: Vital Signs Temp 99 F 06/04/24 15:48 Pulse 68 06/04/24 15:48 Resp 14 06/04/24 15:48 BP 91/54 06/04/24 15:48 Pulse Ox 100 06/04/24 15:48 FiO2 Intake & Output 06/03/24 06/04/24 06/04/24 18:59 06:59 18:59 Intake Total 480 360 Balance 480 360 Weight 49.5 kg 45.3 kg Intake: Oral 480 360 Other: Voiding Method Toilet Toilet Toilet Bedside Commode # Voids 1 1 1 # Bowel Movements 1 1 1 - Labs CBC & Chem 7: 06/03/24 06:00 06/03/24 06:00
[2024-06-05 09:24] VITALS: BP 102/52
[2024-06-05 11:16] VITALS: PULSE 84; RESP 14; TEMP 98
--- NOTE | 2024-06-05 11:56 | P.DS ---
Providers Date of admission: 06/02/24 09:04 Expected date of discharge: 06/05/24 Attending physician: Ramon Piper Consults: 06/02/24 11:38 Consult Physician Routine Consulting Provider: Rola Alonso Consult Reason/Comments: b/l PE Do you want consulting provider notified?: Yes 06/03/24 10:16 Consult Physician Routine Consulting Provider: Adrian Hernandes Consult Reason/Comments: Bilateral PE, questionable pneumonia Do you want consulting provider notified?: Yes Primary care physician: Jefe Ulloa [facility] Course: Discharge diagnoses; Acute non-ST elevation myocardial infarction Bilateral PE Acute DVT of left lower extremity involving the femoral and popliteal . Patient has some nonspecific EKG changes. Some limping troponin. 2D echo done showed normal LV function, mild to moderate aortic stenosis, moderate tricuspid Cardiac catheterization showing normal coronaries Continue aspirin Lipitor CT chest PE protocol done showed bilateral pulmonary emboli with right heart strain, patchy right lower lobe consolidations. Duplex ultrasound of lower extremities done showed acute DVT of left femoral vein and popliteal vein Vascular surgery evaluated, recommended no acute surgical intervention, recommended anticoagulation Continue Eliquis Pulmonology following 06/05. Being discharged on Eliquis 10 mg twice a day for 7 days followed by Eliquis 5 mg twice a day Abdominal pain; Resolved. ultrasound abdomen done showed heterogenous appearance to the fundus of the gallbladder could be seen in adenomyomatosis, recommend follow-up ultrasound in 3 Discussed with patient and patient family in detail regarding following up outpatient with her oncologist and with GI to see if there is any recurrence of colon cancer -Essential hypertension Patient has been on Toprol-XL -Chronic urinary incontinence Detrol LA 2 mg a day -Mild hard of hearing -Primary osteoarthritis Tylenol as needed -Social stressors -Chronic insomnia, patient from social stressors regarding family members Use melatonin Hospital course; This is a pleasant 89-year-old patient, follows with Dr. Jefe Ulloa. Medical conditions include urine incontinence, hypertension, aortic stenosis Patient initially presented to [facility] with some shortness of breath. And has had some dizziness. Also been having some discomfort in the shoulders and left side of the chest. She cannot tell if this was related to any exertion or at rest. No prior cardiac history. Relatively active. Was initially on IV heparin. Patient ruled in for non-Q wave CO. Patient does state that she does not sleep well. Oftentimes wakes up at night. Is worried about family members. Patient underwent a cardiac catheterization by Dr. Fairbanks this afternoon. Found to have normal coronaries. Postprocedure a bit tired. 05/31. Patient seen and examined. Family at the bedside they are concerned that the patient is very lethargic and weak. Want PT and OT evaluation. 06/01. Patient seen and examined. No acute issues overnight. 06/02. Patient seen and examined. Complaining abdominal pain, most likely pressure, no nausea nausea or vomiting. D-dimer elevated. 06/03. Patient seen and examined. CT chest PE protocol done showed bilateral pulmonary emboli with right heart strain, patchy right lower lobe consolidations. Duplex ultrasound of lower extremities done showed acute DVT of left femoral vein and popliteal vein 06/04. Patient seen and examined. No acute issues overnight 06/05. Patient seen and examined. Pulmonology cleared the patient for discharge, patient is currently on Eliquis, prescription given by pulmonology. PT and OT recommend rehab being discharged in stable condition.Discussed with patient and patient family in detail regarding following up outpatient with her oncologist and with GI to see if there is any recurrence of colon cancer PHYSICAL EXAMINATION: GENERAL: The patient is alert and oriented x3, not in any acute distress. Well developed, well nourished. HEENT: Pupils are round and equally reacting to light. EOMI. No scleral icterus. No conjunctival pallor. Normocephalic, atraumatic. No pharyngeal erythema. No thyromegaly. CARDIOVASCULAR: S1 and S2 present. No murmurs, rubs, or gallops. PULMONARY: Chest is clear to auscultation, no wheezing or crackles. ABDOMEN: Soft, nontender, nondistended, normoactive bowel sounds. No palpable organomegaly. MUSCULOSKELETAL: No joint swelling or deformity. EXTREMITIES: No cyanosis, clubbing, or pedal edema. NEUROLOGICAL: Gross neurological examination did not reveal any focal deficits. SKIN: No rashes. Dictation was produced using [employer] dictation software. please excuse any grammatical, word or spelling errors. Patient Condition at Discharge: Good Plan - Discharge Summary New Discharge Prescriptions: New Apixaban [Eliquis Starter Pack (for VTE)] 5 - 10 mg PO DIRECTED 30 Days #1 each Atorvastatin [Lipitor] 40 mg PO HS 30 Days #30 tab Aspirin 81 mg PO DAILY tab Continue Potassium Chloride ER [K-Dur 10] 10 meq PO DAILY Furosemide [Lasix] 20 mg PO DAILY Metoprolol Succinate (ER) [Toprol XL] 25 mg PO DAILY Tolterodine ER [Detrol LA] 2 mg PO DAILY Discontinued Azithromycin [Zithromax Z Pack] See Taper PO DAILY metOLazone 2.5 mg PO DIRECTED Discharge Medication List Furosemide [Lasix] 20 mg PO DAILY 05/30/24 [History] Metoprolol Succinate (ER) [Toprol XL] 25 mg PO DAILY 05/30/24 [History] Potassium Chloride ER [K-Dur 10] 10 meq PO DAILY 05/30/24 [History] Tolterodine ER [Detrol LA] 2 mg PO DAILY 05/30/24 [History] Apixaban [Eliquis Starter Pack (for VTE)] 5 - 10 mg PO DIRECTED 30 Days #1 each 06/03/24 [Rx] Aspirin 81 mg PO DAILY tab 06/05/24 [Rx] Atorvastatin [Lipitor] 40 mg PO HS 30 Days #30 tab 06/05/24 [Rx] Follow up Appointment(s)/Referral(s): Nayan Baca MD [STAFF PHYSICIAN] - 1 Week Jefe Ulloa MD [Primary Care Provider] - 1-2 days Rola Alonso DO [STAFF PHYSICIAN] - 2 Weeks Discharge Disposition: TRANSFER TO SNF/ECF
--- NOTE | 2024-06-05 11:58 | P.PN ---
Subjective Progress Note Date: 06/05/24 Principal diagnosis: Acute pulmonary embolism and acute DVT This is an 89-year-old female with history of moderate aortic stenosis, hypertension, patient was admitted on 05/29/2024, her chief complaint was mostly weakness, and extreme fatigue. Patient has some vague chest discomfort, patient was also noted to have non-ST elevation myocardial infarction on admission, seen by cardiology on consultation, underwent selective right and left coronary angiogram, patient was found to have normal coronary angiogram. And mild gradient across the aortic valve. On 06/02/2024, patient underwent CT angiogram of the chest,And she was found to have bilateral pulmonary emboli, patchy consolidation within the right lower lobe and medial left upper lobe with tree-in-bud nodular opacities involving the left upper lobe. Raised the possibility of infectious process. Patient had no symptoms to suggest pneumonia on her initial presentation no cough no fever no chills no hemoptysis no chest pain, she had mostly symptoms of weakness as her initial chief complaint. Venous Doppler of the legs showed evidence ofLeft lower extremity DVT. Patient was seen by cardiology on consultation she was also seen by vascular surgery on consultation, the recommendation was to continue present medical treatment, patient was on heparin and she was transitioned to Eliquis. No plans to undergo EKOS thrombolysis or mechanical thrombectomy since the patient did not have significant right-sided heart strain. Patient had no previous history of thromboembolic disease but she did have however history of colon cancer diagnosed and treated in 2014. She had bowel resection, and she had multiple orthopedic surgeries, years ago. Patient has a relatively sedentary lifestyle. No family history of thromboembolic disease Patient was seen today on 06/04/2024, patient is doing well, she is now off heparin, transition to Eliquis. No shortness of breath, no cough, no wheezing, he has some vague right-sided chest discomfort. WBC count is 15.7 hemoglobin 11.8 electrolytes are normal renal profile is normal Seen today on 06/05/2024, patient is doing well, asymptomatic, hardly any pulmonary symptoms remains on room air, on Eliquis. No further episodes of abdominal pain, patient would like to be sent home today. I will clear him from my perspective as long as she is cleared by other consultants. Objective - Vital Signs Vital signs: Vital Signs Temp 98 F 06/05/24 11:14 Pulse 84 06/05/24 11:14 Resp 14 06/05/24 11:14 BP 102/52 06/05/24 11:14 Pulse Ox 97 06/05/24 11:14 FiO2 Intake & Output 06/04/24 06/05/24 06/05/24 18:59 06:59 18:59 Intake Total 540 20 Balance 540 20 Weight 44.3 kg Intake: IV 20 Invasive Line 1 10 Invasive Line 2 10 Oral 540 Other: Voiding Method Toilet Toilet Bedside Commode Bedside Commode # Voids 1 1 # Bowel Movements 1 1 - Exam Gen: revealed 89-year-old female pleasant, in no distress, on room air, O2 sats 97% Head: Atraumatic, normocephalic HEENT: PERRLA, EOMI, nonicteric, moist mucous membranes. NECK: Supple. No JVD. No stridor no neck masses LUNGS: Clear to auscultation. No wheezes or rhonchi. HEART: Distant heart sounds. Regular rate and rhythm. Systolic murmur. At the right parasternal area. ABDOMEN: Soft nontender no rebound no guarding positive bowel sounds EXTREMITIES: No clubbing edema or cyanosis NEUROLOGICAL: Alert oriented x 3 no gross focal deficit Psychiatric: Normal mood affect and normal mental status examination. - Labs CBC & Chem 7: 06/03/24 06:00 06/03/24 06:00 Assessment and Plan Assessment: Impression: Acute DVT and acute pulmonary embolism Non-ST elevation myocardial infarction Moderate severe aortic stenosis Benign essential hypertension History of colon cancer, bowel resection in 2015 Clinically, doubt pneumonia, CT scan findings are nonspecific Recommendation: Continue present supportive care measures Continue Eliquis, patient may have to be on Eliquis for the rest of her life Consider further GI workup and possibly colonoscopy, rule out recurrent colon cancer this could be done on an outpatient basis. Will clear for discharge Time with Patient: Less than 30
== END 2024-06-05 15:08 | DRG 280 ==
LOC: EC 20:50 → 3SCARD 22:37 → OBSVTOIN 06-02 09:04
PROVIDERS: ADMIT Hospitalist; ATTEND Hospitalist
PROC: B2111ZZ Fluoroscopy of Multiple Coronary Arteries using Low Osmolar Contrast (ICD-10-PCS; 2024-05-30)
PROC: 4A023N7 Measurement of Cardiac Sampling and Pressure, Left Heart, Percutaneous Approach (ICD-10-PCS; principal; 2024-05-30 13:00)
DX: I21.4 Non-ST elevation (NSTEMI) myocardial infarction (principal); I26.99 Other pulmonary embolism without acute cor pulmonale; I82.412 Acute embolism and thrombosis of left femoral vein; I82.432 Acute embolism and thrombosis of left popliteal vein; I82.511 Chronic embolism and thrombosis of right femoral vein; Z68.1 Body mass index [BMI] 19.9 or less, adult; R62.7 Adult failure to thrive; I27.20 Pulmonary hypertension, unspecified; I11.9 Hypertensive heart disease without heart failure; I25.10 Atherosclerotic heart disease of native coronary artery without angina pectoris; I08.0 Rheumatic disorders of both mitral and aortic valves; R32 Unspecified urinary incontinence; H91.90 Unspecified hearing loss, unspecified ear; M19.91 Primary osteoarthritis, unspecified site; F51.04 Psychophysiologic insomnia; R54 Age-related physical debility; Z79.82 Long term (current) use of aspirin; Z85.038 Personal history of other malignant neoplasm of large intestine; Z90.49 Acquired absence of other specified parts of digestive tract; Z79.899 Other long term (current) drug therapy
CPT/HCPCS: 36415; 71275; 74177; 76700; 80048; 80053; 80061; 83735; 84145; 84484; 85025; 85379; 85610; 85730; 93005; 93306; 93458; 93970; 94760; 96365; 96366; 99285

== ENCOUNTER → 2024-09-04 | Day surgery (SDC) | payer MEDICARE, BC ==
[~2024-09-04] MED LIST changes: +LIDOCAINE 1% (10MG/ML) FOR IV START INTRADERMA PRN; -LIDOCAINE 1% 20 ML VIAL (10MG/ML) FOR IV START INTRADERMA PRN; +ONDANSETRON 4 MG/2 ML VIAL IVP PRN
[2024-09-04] MEDS: IV FLUID CONTINUATION 1,000 ML IV ONE ×2 (13:07→13:35)
[2024-09-04 13:10] VITALS: BP 148/77; PULSE 71; RESP 16; TEMP 97.3
[2024-09-04 13:26] LABS: INR 1.2 (<1.2); Prothrombin Time 12.4 sec (10.0-12.5)
== END ==
LOC: ORWHC2ENDO 12:15
PROVIDERS: ATTEND Surgery
DX: C18.9 Malignant neoplasm of colon, unspecified (principal); Z53.8 Procedure and treatment not carried out for other reasons
CPT/HCPCS: 85610